=== PATIENT | female | born 1990 | race Caucasian/White ===

== ENCOUNTER 2016-08-17 07:26 | Emergency (ER) ==
[2016-08-17 07:29] VITALS: BP 128/85; TEMP 98.4; BMI 36.8
[2016-08-17 07:51] LABS: BASOPHILS % (AUTO) 0.3 % (0.0-3.0); EOSINOPHILS # (AUTO) 0.1 K/ul (0.0-0.7); EOSINOPHILS % (AUTO) 1.4 % (0.0-7.0); HEMOGLOBIN 14.8 g/dl (12.0-16.0); IMMATURE GRANULOCYTE % (AUTO) 0.3 % (0.0-5.0); LYMPHOCYTES # (AUTO) 2.2 K/uL (0.60-3.4); LYMPHOCYTES % (AUTO) 24.1 (10.0-50.0); MEAN CORPUSCULAR HEMOGLOBIN 28.1 pg (27.0-31.0); MEAN CORPUSCULAR HGB CONC 34.4 (31.8-35.4); MEAN CORPUSCULAR VOLUME 81.6 fl (81.0-99.0); MONOCYTES # (AUTO) 0.4 K/uL (0.4-2.0); MONOCYTES % (AUTO) 4.3 (0-10); NEUTROPHILS # (AUTO) 6.3 K/ul (2.0-6.9); NEUTROPHILS % (AUTO) 69.6; PLATELET COUNT 303 10^3/uL (140-440); RED BLOOD COUNT 5.27 10^6/ul (4.20-5.40)
[2016-08-17 08:13] LABS: SERUM PREGNANCY INTERNAL QC INTERNAL QC VALID
[2016-08-17 08:15] LABS: ALBUMIN 3.9 g/dL (3.4-5.0); ALBUMIN/GLOBULIN RATIO 1.22; ANION GAP 10.9; BILIRUBIN,TOTAL 0.5 mg/dL (0.00-1.20); BUN/CREATININE RATIO 17.1; CALCIUM 8.7 mg/dL (8.2-10.2); CREATININE 0.76 mg/dL (0.60-1.30); POTASSIUM 3.9 mmol/L (3.5-5.10); TOTAL PROTEIN 7.1 g/dL (6.4-8.2)
[2016-08-17 08:17] LABS: BILIRUBIN,URINE Negative (NEGATIVE); KETONES,URINE Negative (NEGATIVE); LEUKOCYTE ESTERASE ,URINE 1+ (NEGATIVE); NITRITE,URINE Negative (NEGATIVE); PH,URINE 5.5 (5-9); PROTEIN,URINE Negative (NEGATIVE); URINE, BLOOD Trace-intact (NEGATIVE)
--- NOTE | 2016-08-17 08:21 | ED.PDOC ---
General ED Provider: Dr. SAHIL AREVALO Chief Complaint: Nausea/Vomiting Stated Complaint: nausea , food smells bothers hers no period since jun Time Seen by Physician: 07:30 (no vaginal bleeding) Mode of Arrival: Walk-In Information Source: Patient Exam Limitations: No limitations Primary Care Provider: VANESA COLORADO Nursing and Triage Documentation Reviewed and Agree: Yes GI Complaint Exam - Vomiting/Diarrhea Complaint/Exam Onset/Duration: no vomiting Current Severity: None Aggravating: Reports: None Alleviating: Reports: None Associated Signs and Symptoms: Denies: Dizziness, Light-headedness, Melena, Hematemesis, Fever, Abdominal pain, Cramping Related History: Reports: Similar episode Use of Oral Contraceptives: No Use of Depoprovera: No Compliant With Contraceptive Use: No Non-GI Risk Factors: Reports: None Surgical Obstruction Risk Factors: Reports: None Related Surgical History: Reports: None Abdominal Findings: Present: None Differential Diagnoses: Review of Systems - Review Of Systems Constitutional: Reports: No symptoms Eyes: Reports: No symptoms Ears, Nose, Mouth, Throat: Reports: No symptoms Respiratory: Reports: No symptoms Cardiac: Reports: No symptoms GI: Reports: Nausea : Reports: No symptoms Musculoskeletal: Reports: No symptoms Skin: Reports: No symptoms Neurological: Reports: No symptoms Endocrine: Reports: No symptoms Hematologic/Lymphatic: Reports: No symptoms All Other Systems: Reviewed and Negative Past Medical History - Past Medical History Endocrine: Reports: None Cardiovascular: Reports: None Respiratory: Reports: None Hematological: Reports: None Gastrointestinal: Reports: None Genitourinary: Reports: None Neuro/Psych: Reports: None Musculoskeletal: Reports: None Cancer: Reports: None Last Menstrual Period: 06/25/16 - Surgical History General Surgical History: Reports: Cholecystectomy, Tonsillectomy, Other ( wisdom teeth ) - Family History Family History: Reports: Hypertension, Diabetes - Social History Smoking Status: Never smoker Hx Substance Use: No Alcohol Screening: Occasionally Physical Exam - Physical Exam Appearance: Well-appearing, No pain distress, Well-nourished Eyes: COURTNEY, EOMI, Conjunctiva clear ENT: Ears normal, Nose normal, Oropharynx normal Respiratory: Airway patent, Breath sounds clear, Breath sounds equal, Respirations nonlabored Cardiovascular: RRR, Pulses normal, No rub, No murmur GI/: Soft, Nontender, No masses, Bowel sounds normal, No Organomegaly Musculoskeletal: Normal strength, ROM intact, No edema, No calf tenderness Skin: Warm, Dry, Normal color Neurological: Sensation intact, Motor intact, Reflexes intact, Cranial nerves intact, Alert, Oriented Psychiatric: Affect appropriate, Mood appropriate Critical Care Note - Critical Care Note Total Time (mins): 0 Course - Course Hematology/Chemistry: 08/17/16 07:48 08/17/16 07:48 Orders, Labs, Meds: Lab Review 08/17/16 07:48 WBC 9.10 RBC 5.27 Hgb 14.8 Hct 43.0 MCV 81.6 MCH 28.1 MCHC 34.4 RDW Coeff of [place] 13.0 Plt Count 303 Immature Gran % (Auto) 0.3 Neut % (Auto) 69.6 Lymph % (Auto) 24.1 [place] % (Auto) 4.3 Eos % (Auto) 1.4 Baso % (Auto) 0.3 Immature Gran # (Auto) 0.0 Neut # 6.3 Lymph # 2.2 [place] # 0.4 Eos # 0.1 Baso # 0.0 Sodium 137 Potassium 3.9 Chloride 106 Carbon Dioxide 24 Anion Gap 10.9 BUN 13 Creatinine 0.76 Estimated GFR (MDRD) 93.00 BUN/Creatinine Ratio 17.10 Glucose 91 Calcium 8.7 Total Bilirubin 0.50 AST 15 ALT 18 Alkaline Phosphatase 87 Total Protein 7.1 Albumin 3.9 Globulin 3.2 Albumin/Globulin Ratio 1.22 Serum , Qual Negative Orders Category Date Time Status CBC W/ AUTO DIFF Stat LAB 08/17/16 07:39 Ordered COMPREHENSIVE METABOLIC PANEL Stat LAB 08/17/16 07:39 Ordered SERUM Stat LAB 08/17/16 Ordered URINALYSIS C & S IF INDICATED Stat LAB 08/17/16 07:39 Uncollected Vital Signs: Temp Pulse Resp BP Pulse Ox 08/17/16 07:27 98.4 F 96 H 16 128/85 97 Departure - Departure Time of Disposition: 08:21 Disposition: HOME SELF-CARE Discharge Problem: Nausea Instructions: Acute Nausea and Vomiting (ED) Condition: Good Pt referred to PMD for follow-up: No Additional Instructions: Please call your Family Physician as soon as possible to schedule a follow-up appointment. Allergies/Adverse Reactions: Allergies cefixime [From Suprax] Adverse Reaction (Verified 08/17/16 07:30) erythromycin ethylsuccinate [From Pediazole] Adverse Reaction (Verified 07:30) naproxen [From Naprosyn] Adverse Reaction (Verified 08/17/16 07:30) sulfisoxazole acetyl [From Pediazole] Adverse Reaction (Verified 08/17/16 07:30) tramadol Adverse Reaction (Verified 08/17/16 07:30) Home Medications: Ambulatory Orders 1 [No Reported Medications] 08/17/16 Disposition Discussed With: Patient
[2016-08-17 08:27] LABS: ADD URINE MICROSCOPIC YES
[2016-08-17 08:29] LABS: BACTERIA,URINE 1+ (NOT PRESENT)
== END 2016-08-17 09:29 | disposition home or self-care (01) ==
LOC: ED 07:26
DX: N39.0 Urinary tract infection, site not specified (principal)
CPT/HCPCS: 36415; 80053; 81001; 84703; 85025; 87086; 99283

== ENCOUNTER 2016-11-16 19:13 | Emergency (ER) ==
[2016-11-16 19:20] VITALS: BP 124/86; TEMP 98.4; BMI 38.1
--- NOTE | 2016-11-16 19:47 | ED.PDOC ---
General ED Provider: Dr. ZULLY PADILLA Chief Complaint: Abscess Stated Complaint: Has boils in private area, she is 16 weeks . Time Seen by Physician: 19:44 Mode of Arrival: Walk-In Information Source: Patient Primary Care Provider: VANESA [place]OR[place] Nursing and Triage Documentation Reviewed and Agree: Yes Skin Complaint Exam - Skin/Soft Tissue Complaint/Exam Symptoms Are: Still present Timing: Constant Initial Severity: Mild Current Severity: Mild Character: Reports: Redness, Swelling, Painful Aggravating: Reports: Touch Alleviating: Reports: None Associated Signs and Symptoms: Denies: Fever, Chills, Itching, Drainage, Bruising, Tenderness, Red streaks, Joint swelling Related History: Reports: Similar episode Skin Findings: Present: Erythema, Induration. Absent: Fluctuant mass Differential Diagnoses: Cellulitis, Infection Review of Systems - Review Of Systems Constitutional: Reports: No symptoms Eyes: Reports: No symptoms Ears, Nose, Mouth, Throat: Reports: No symptoms Respiratory: Reports: No symptoms Cardiac: Reports: No symptoms GI: Reports: No symptoms : Reports: No symptoms Musculoskeletal: Reports: No symptoms Skin: Reports: No symptoms Neurological: Reports: No symptoms Endocrine: Reports: No symptoms Hematologic/Lymphatic: Reports: No symptoms All Other Systems: Reviewed and Negative Past Medical History - Past Medical History Previously Healthy: Yes Endocrine: Reports: None Cardiovascular: Reports: None Respiratory: Reports: None Hematological: Reports: None Gastrointestinal: Reports: None Genitourinary: Reports: None Neuro/Psych: Reports: None Musculoskeletal: Reports: None Cancer: Reports: None Last Menstrual Period: - Surgical History General Surgical History: Reports: Cholecystectomy, Tonsillectomy, Other ( wisdom teeth ) - Family History Family History: Reports: Hypertension, Diabetes - Social History Smoking Status: Never smoker Hx Substance Use: No Alcohol Screening: Occasionally Physical Exam - Physical Exam Appearance: Well-appearing, No pain distress, Well-nourished Eyes: COURTNEY, EOMI, Conjunctiva clear ENT: Ears normal, Nose normal, Oropharynx normal Respiratory: Airway patent, Breath sounds clear, Breath sounds equal, Respirations nonlabored Cardiovascular: RRR, Pulses normal, No rub, No murmur GI/: Soft, Nontender, No masses, Bowel sounds normal, No Organomegaly Musculoskeletal: Normal strength, ROM intact, No edema, No calf tenderness Skin: Warm, Dry, Normal color Neurological: Sensation intact, Motor intact, Reflexes intact, Cranial nerves intact, Alert, Oriented Psychiatric: Affect appropriate, Mood appropriate Critical Care Note - Critical Care Note Total Time (mins): 0 Course - Course Vital Signs: Temp Pulse Resp BP Pulse Ox 11/16/16 19:14 98.4 F 106 H 16 124/86 97 Departure - Departure Time of Disposition: 19:51 Disposition: HOME SELF-CARE Discharge Problem: Abscess Instructions: Abscess (ED) Condition: Stable Pt referred to PMD for follow-up: Yes Additional Instructions: keep doing the hot pack keep f/u with Obgyn. take probiotics Prescriptions: Clindamycin HCl 300 mg PO TID #15 capsule Allergies/Adverse Reactions: Allergies cefixime [From Suprax] Adverse Reaction (Verified 11/16/16 19:21) erythromycin ethylsuccinate [From Pediazole] Adverse Reaction (Verified 19:21) naproxen [From Naprosyn] Adverse Reaction (Verified 11/16/16 19:21) sulfisoxazole acetyl [From Pediazole] Adverse Reaction (Verified 11/16/16 19:21) tramadol Adverse Reaction (Verified 11/16/16 19:21) Home Medications: Ambulatory Orders Clindamycin HCl 300 mg PO TID #15 capsule 11/16/16 Docusate Sodium [Colace] 100 mg PO DAILY 11/16/16 Pnv Cmb#21/Iron/Folic Acid [ Complete Caplet] 1 tab PO DAILY 11/16/16 Disposition Discussed With: Patient, Family
[2016-11-16] MEDS ORDERED: CLEOCIN PO STA (19:52)
== END 2016-11-16 20:14 | disposition home or self-care (01) ==
LOC: ED 19:13
DX: L02.91 Cutaneous abscess, unspecified (principal); Z33.1 Pregnant state, incidental
CPT/HCPCS: 99282

== ENCOUNTER 2017-11-01 22:09 | Emergency (ER) | payer OTHER ==
[2017-11-01 22:20] VITALS: BP 135/83; TEMP 98.6; BMI 40.5
--- NOTE | 2017-11-01 23:29 | ED.PDOC ---
General ED Provider: Dr. ROBB BANUELOS Chief Complaint: Fall Stated Complaint: Tripped over daughter, fell onto hardwood floor, landed on dresser drawer that was pulled out. Pain to lower back, hurts more with movement. Time Seen by Physician: 23:25 Mode of Arrival: Walk-In Information Source: Patient Nursing and Triage Documentation Reviewed and Agree: Yes Reviewed sepsis parameters & appropriate labs ordered?: No System Inflammatory Response Syndrome: Not Applicable Sepsis Protocol: For patient's 13 years and over: Temp is 96.8 and below OR 101 and greater Pulse >90 BPM Resp >20/minute Acutely Altered Mental Status Are patient's symptoms suggestive of a new infection, such as: -Pneumonia -Skin, Soft Tissue -Endocarditis -UTI -Bone, Joint Infection -Implantable Device -Acute Abdominal Infection -Wound Infection -Meningitis -Blood Stream Catheter Infection -Unknown Musculoskeletal Complaint Exam - Back Pain Complaint/Exam Mechanism of Injury: Reports: Trauma Onset/Duration: this evening Symptoms Are: Still present Timing: Constant Initial Severity: Severe Current Severity: Severe Location: Reports: Discrete (Mid lower back ) Character: Reports: Aching, Throbbing Aggravating: Reports: Movements, Lifting, Bending Alleviating: Reports: Rest Associated Signs and Symptoms: Denies: Swelling, Redness, Bruising, Fever, Weakness, Numbness, Tingling, Abdominal pain, Flank pain, Bladder incontinence, Bowel incontinence, Weight loss, Pain with weight bearing Focal Tenderness: No Paraspinal Muscle Tenderness: Yes Paraspinal Muscle Spasm: Yes Scoliosis: No Lordosis: No Kyphosis: No SLR Test: Right Negative, Left Negative Hip Motion Testing Pain: Right Negative, Left Negative Focal Weakness: Present: None Focal Sensory Loss: Present: None Gait: Present: Normal Back Picture: 1 - back pain Differential Diagnoses: Strain, Sprain Review of Systems - Review Of Systems Constitutional: Reports: No symptoms Musculoskeletal: Reports: Back pain Neurological: Reports: Anxiety All Other Systems: Reviewed and Negative Past Medical History - Past Medical History Previously Healthy: Yes Endocrine: Reports: None Cardiovascular: Reports: None Respiratory: Reports: None Hematological: Reports: None Gastrointestinal: Reports: None Genitourinary: Reports: None Neuro/Psych: Reports: None Musculoskeletal: Reports: None Cancer: Reports: None Last Menstrual Period: 1 week ago - Surgical History General Surgical History: Reports: Cholecystectomy, Tonsillectomy, Other ( wisdom teeth ) - Family History Family History: Reports: Hypertension, Diabetes - Social History Smoking Status: Never smoker Hx Substance Use: No Alcohol Screening: Occasionally - Immunizations Tetanus Shot up to Date: Yes Physical Exam - Physical Exam Appearance: Ill-appearing, Well-nourished Ill-appearing: Mild Pain Distress: Severe Neck: Supple Respiratory: Airway patent, Breath sounds clear, Breath sounds equal, Respirations nonlabored Cardiovascular: RRR, Pulses normal, No rub, No murmur Musculoskeletal: Limited ROM Skin: Warm, Dry Psychiatric: Anxious Critical Care Note - Critical Care Note Total Time (mins): 0 Course - Course Orders, Labs, Meds: Orders Category Date Time Status Ketorolac Tromethamine [Toradol] MEDS 11/01/17 23:31 Discontinued 60 mg .ROUTE .STK-MED ONE Ketorolac Tromethamine [Toradol] MEDS 11/01/17 23:29 Discontinued 60 mg IM ONCE STA Medications Discontinued Medications Generic Name Dose Route Start Last Admin Trade Name Freq PRN Reason Stop Dose Admin Ketorolac Tromethamine 60 mg 11/01/17 23:29 11/01/17 23:34 Toradol IM 11/01/17 23:30 Not Given ONCE STA Vital Signs: Temp Pulse Resp BP Pulse Ox 11/01/17 22:09 98.6 F 92 H 20 135/83 98 Departure - Departure Time of Disposition: 00:12 Disposition: HOME SELF-CARE Discharge Problem: Falls Lower back injury Qualifiers: Encounter type: initial encounter Qualified Code(s): S39.92XA - Unspecified injury of lower back, initial encounter Instructions: Low Back Strain (ED) Condition: Stable Pt referred to PMD for follow-up: Yes IPMP verified?: No Additional Instructions: Take medications as prescribed Follow up with PCP in 3 days Prescriptions: Hydrocodone/Acetaminophen [[place] 5-325 Tablet] 1 tab PO Q6HR PRN #7 tablet PRN Reason: PAIN Allergies/Adverse Reactions: Allergies cefixime [From Suprax] Adverse Reaction (Verified 11/16/16 19:21) erythromycin ethylsuccinate [From Pediazole] Adverse Reaction (Verified 19:21) naproxen [From Naprosyn] Adverse Reaction (Verified 11/16/16 19:21) sulfisoxazole acetyl [From Pediazole] Adverse Reaction (Verified 11/16/16 19:21) tramadol Adverse Reaction (Verified 11/16/16 19:21) Home Medications: Ambulatory Orders Docusate Sodium [Colace] 100 mg PO DAILY PRN 11/16/16 Alprazolam [Xanax] 0.5 mg PO BID PRN 11/01/17 Hydroxyzine Pamoate 25 mg PO DAILY 11/01/17 Norgestimate-Ethinyl Estradiol [Tri-Sprintec Tablet] 1 tab PO DAILY 11/01/17 Tizanidine HCl [Zanaflex] 4 mg PO TID PRN 11/01/17 Hydrocodone/Acetaminophen [[place] 5-325 Tablet] 1 tab PO Q6HR PRN #7 tablet 11/02 Disposition Discussed With: Patient
[2017-11-01] MEDS: TORADOL IM STA (23:34)
[2017-11-01] MEDS: TORADOL ONE (23:34)
== END 2017-11-02 00:24 | disposition home or self-care (01) ==
LOC: ED 22:09
DX: S39.92XA Unspecified injury of lower back, initial encounter (principal); M54.5 Low back pain; W03.XXXA Other fall on same level due to collision with another person, initial encounter
CPT/HCPCS: 96372; 99282

== ENCOUNTER 2017-12-04 12:34 | Observation (INO) ==
--- NOTE | 2017-12-04 13:19 | ED.PDOC ---
General ED Provider: Dr. ABHIJEET CHILDERS Chief Complaint: Chest Pain Stated Complaint: Chest pain Time Seen by Physician: 12:50 Mode of Arrival: Walk-In Information Source: Patient Exam Limitations: No limitations Primary Care Provider: YFN OLIVIA Nursing and Triage Documentation Reviewed and Agree: Yes Does patient meet sepsis criteria?: No System Inflammatory Response Syndrome: Not Applicable Sepsis Protocol: For patient's 13 years and over: Temp is 96.8 and below OR 101 and greater Pulse >90 BPM Resp >20/minute Acutely Altered Mental Status Are patient's symptoms suggestive of a new infection, such as: -Pneumonia -Skin, Soft Tissue -Endocarditis -UTI -Bone, Joint Infection -Implantable Device -Acute Abdominal Infection -Wound Infection -Meningitis -Blood Stream Catheter Infection -Unknown Cardiovascular Complaint Exam - Chest Pain Complaint/Exam Onset: Gradual (Pt woke up about 8 AM; chest pain noted then (did not wake her up) - has gotten worse during day) Associated Signs and Symptoms: Reports: Nausea. Denies: Vomiting (upset stomach feeling) Related History: Reports: Similar episode Related Surgical History: Reports: None History of Healthcare-Acquired Pneumonia: Reports: No AMI/ACS Risk Factors: Reports: None Prior Care for this Complaint: No JVD Present: No Diminshed Breath Sounds: No Reproducible Chest Wall Pain: No Review of Systems - Review Of Systems Constitutional: Reports: Malaise Ears, Nose, Mouth, Throat: Reports: No symptoms Respiratory: Reports: No symptoms Cardiac: Reports: Chest pain All Other Systems: Reviewed and Negative Past Medical History - Past Medical History Previously Healthy: Yes Endocrine: Reports: None Cardiovascular: Reports: None Respiratory: Reports: None Hematological: Reports: None Gastrointestinal: Reports: None Genitourinary: Reports: None Neuro/Psych: Reports: None Musculoskeletal: Reports: None Cancer: Reports: None Last Menstrual Period: 2 weeks ago - Surgical History General Surgical History: Reports: Cholecystectomy, Tonsillectomy, Other ( wisdom teeth ) - Family History Family History: Reports: Hypertension, Diabetes - Social History Smoking Status: Never smoker Hx Substance Use: No Alcohol Screening: None - Immunizations Tetanus Shot up to Date: Yes Physical Exam - Physical Exam Appearance: Well-appearing Pain Distress: Mild Eyes: COURTNEY, EOMI ENT: Ears normal, Nose normal, Oropharynx normal Neck: Supple Respiratory: Airway patent, Breath sounds clear, Breath sounds equal, Respirations nonlabored Cardiovascular: RRR, Pulses normal Musculoskeletal: Normal strength, ROM intact Skin: Warm, Dry, Normal color Neurological: Alert, Oriented, Unresponsive, Abnormal reflexes Psychiatric: Affect appropriate, Mood appropriate Interpretation - Radiology Interpretation Radiology Interpretation By: Radiologist Radiology Results: Negative Exam Interpreted: CXR Radiology Interpretation By: Radiologist Radiology Results: Negative Exam Interpreted: CT Scan (PE protocol) - EKG Interpretation Time of EKG #1: 12:56 Rate: Tachy (101 BMP) Rhythm: Sinus Ectopy: None Cascade: NL ST Segment: Normal Interpretation: No acute changes Critical Care Note - Critical Care Note Total Time (mins): 40 Comments: W/U for ACS and PE; review labs and radiology findings. Discussed with Hospitalist - admitted for CP, possible ACS Course - Course Hematology/Chemistry: 12/04/17 13:20 12/04/17 13:20 Orders, Labs, Meds: Lab Review 12/04/17 12/04/17 12/04/17 13:20 13:20 13:20 WBC 7.55 RBC 4.95 Hgb 13.7 Hct 39.5 MCV 79.8 L MCH 27.7 MCHC 34.7 RDW Coeff of [place] 13.5 Plt Count 318 Immature Gran % (Auto) 0.3 Neut % (Auto) 63.9 Lymph % (Auto) 26.9 [place] % (Auto) 6.6 Eos % (Auto) 1.9 Baso % (Auto) 0.4 Immature Gran # (Auto) 0.0 Neut # (Auto) 4.8 Lymph # (Auto) 2.0 [place] # (Auto) 0.5 Eos # (Auto) 0.1 Baso # (Auto) 0.0 D-Dimer (Manual) 797.38 Sodium 133 L Potassium 3.7 Chloride 106 Carbon Dioxide 19 L Anion Gap 11.7 BUN 12 Creatinine 0.70 Estimated GFR (MDRD) 102.00 BUN/Creatinine Ratio 17.14 Glucose 97 Calcium 8.4 Total Bilirubin 0.5 AST 12 L ALT 14 Alkaline Phosphatase 80 Troponin I < 0.0100 Total Protein 6.7 Albumin 3.3 L Globulin 3.4 Albumin/Globulin Ratio 0.97 Urine Test Urine Opiates Screen Ur Oxycodone Screen Urine Methadone Screen Ur Propoxyphene Screen Ur Barbiturates Screen U Tricyclic Antidepress Ur Phencyclidine Scrn Ur Amphetamine Screen U Methamphetamines Scrn U Benzodiazepines Scrn Urine Cocaine Screen U Cannabinoids Screen 12/04/17 12/04/17 13:20 13:20 WBC RBC Hgb Hct MCV MCH MCHC RDW Coeff of [place] Plt Count Immature Gran % (Auto) Neut % (Auto) Lymph % (Auto) [place] % (Auto) Eos % (Auto) Baso % (Auto) Immature Gran # (Auto) Neut # (Auto) Lymph # (Auto) [place] # (Auto) Eos # (Auto) Baso # (Auto) D-Dimer (Manual) Sodium Potassium Chloride Carbon Dioxide Anion Gap BUN Creatinine Estimated GFR (MDRD) BUN/Creatinine Ratio Glucose Calcium Total Bilirubin AST ALT Alkaline Phosphatase Troponin I Total Protein Albumin Globulin Albumin/Globulin Ratio Urine Test Negative Urine Opiates Screen Negative Ur Oxycodone Screen Negative Urine Methadone Screen Negative Ur Propoxyphene Screen Negative Ur Barbiturates Screen Negative U Tricyclic Antidepress Negative Ur Phencyclidine Scrn Negative Ur Amphetamine Screen Negative U Methamphetamines Scrn Negative U Benzodiazepines Scrn Negative Urine Cocaine Screen Negative U Cannabinoids Screen Negative Orders Category Date Time Status PLACE PATIENT OBSERVATION .TO MEDSURG (MONITORED BED ADMISSION 12/04/17 16: 27 Active ) EKG-(ED ONLY) Stat CARDIO 12/04/17 13:16 Completed NPO REMINDER: IMAGING ONCE CARE 12/04/17 14:41 Completed TELEMETRY MONITORING TELE CARE 12/04/17 16:28 Active CBC W/ AUTO DIFF Stat LAB 12/04/17 13:20 Completed COMPREHENSIVE METABOLIC PANEL Stat LAB 12/04/17 13:20 Completed D-DIMER Stat LAB 12/04/17 13:20 Completed TROPONIN I Stat LAB 12/04/17 13:20 Completed URINE DRUG SCREEN (RAPID FOR ED) [DRUG SCREEN, URINE, LAB 12/04/17 13:20 Completed RAPID] Stat URINE Stat LAB 12/04/17 13:20 Completed Ondansetron [Zofran Odt] MEDS 12/04/17 15:11 Discontinued 4 mg PO ONCE STA CHEST, 2 VIEWS PA & LAT Stat RADS 12/04/17 13:[address] CHEST PE PROTOCOL Stat RADS 12/04/17 14:39 Completed Medications Generic Name Dose Route Start Last Admin Trade Name Freq PRN Reason Stop Dose Admin Fluoxetine HCl 20 mg 12/05/17 09:00 Prozac PO DAILY [place] Hydroxyzine Pamoate 25 mg 12/05/17 09:00 Vistaril PO DAILY [facility] Sodium Chloride 1,000 mls @ 75 mls/hr 12/04/17 17:30 Sodium Chloride IV .[id number] [facility] Metformin HCl 500 mg 12/04/17 21:00 Glucophage PO BID [facility] Non-Formulary Medication 4 mg 12/05/17 09:00 Montelukast Sodium [Singulair] PO DAILY [facility] Non-Formulary Medication 1 tab 12/05/17 09:00 Norgestimate-Ethinyl Estradiol [Tri-Sprintec Tablet] PO DAILY [facility] Non-Formulary Medication 6 mg 12/04/17 21:00 Paliperidone [Invega] PO BID [facility] Non-Formulary Medication 25 mg 12/04/17 21:00 Topiramate [Topamax] PO BID [facility] Prazosin HCl 1 mg 12/04/17 21:00 Minipress PO BEDTIME [facility] Discontinued Medications Generic Name Dose Route Start Last Admin Trade Name Freq PRN Reason Stop Dose Admin Ondansetron HCl 4 mg 12/04/17 15:11 12/04/17 15:29 Zofran Odt PO 12/04/17 15:12 4 mg ONCE STA Administration Vital Signs: Temp Pulse Resp BP Pulse Ox 12/04/17 12:34 98 F 120 H 16 123/88 98 LUIS Risk Score LUIS Risk Score: Risk Score Odds of by 30D 0 0.1 (0.1-0.2) 1 0.3 (0.2-0.3) 2 0.4 (0.3-0.5) 3 0.7 (0.6-0.9) 4 1.2 (1.0-1.5) 5 2.2 (1.9-2.6) 6 3.0 (2.5-3.6) 7 4.8 (3.8-6.1) Departure - Departure Time of Disposition: 17:17 Disposition: PLACED OBSERVATION Discharge Problem: Chest pain Condition: Fair Pt referred to PMD for follow-up: Yes (Call for followup after discharge from ER ) IPMP verified?: No (No narcotics prescribed) Allergies/Adverse Reactions: Allergies cefixime [From Suprax] Adverse Reaction (Verified 12/04/17 12:46) erythromycin ethylsuccinate [From Pediazole] Adverse Reaction (Verified 12:46) naproxen [From Naprosyn] Adverse Reaction (Verified 12/04/17 12:46) sulfisoxazole acetyl [From Pediazole] Adverse Reaction (Verified 12/04/17 12:46) tramadol Adverse Reaction (Verified 12/04/17 12:46) Home Medications: Ambulatory Orders Hydroxyzine Pamoate 25 mg PO DAILY 11/01/17 Norgestimate-Ethinyl Estradiol [Tri-Sprintec Tablet] 1 tab PO DAILY 11/01/17 Fluoxetine HCl [Prozac] 20 mg PO DAILY 12/04/17 Metformin HCl 500 mg PO BID 12/04/17 Montelukast Sodium [Singulair] 4 mg PO DAILY 12/04/17 Paliperidone [Invega] 6 mg PO BID 12/04/17 Prazosin HCl 1 mg PO BEDTIME 12/04/17 Topiramate [Topamax] 25 mg PO QID 12/04/17
--- NOTE | 2017-12-04 14:12 | DI ---
EXAM: CHEST FRONTAL AND LATERAL VIEWS HISTORY: Chest pain. COMPARISON: 10/08/2015 FINDINGS: Heart size and mediastinal contour remain within normal limits. No acute infiltrates. Normal vascularity with no pleural fluid or pneumothorax. The bony thorax has no acute finding. IMPRESSION: No acute process.
[2017-12-04] MEDS ORDERED: ZOFRAN ODT PO STA (15:11)
--- NOTE | 2017-12-04 16:05 | CT ---
EXAM: CTA of the chest. History: Chest pain, elevated D-dimer. Comparison: Chest radiograph 12/04/2017 Technique: Multiplanar CT images through the thorax were obtained following administration of IV con trast. MIP images and 3-D reconstructions were also provided. Findings: Heart size is normal. No pericardial effusion. Great vessels are unremarkable. No patho logically enlarged thoracic lymph nodes. No pulmonary arterial filling defects. No consolidation. No pleural fluid and no pneumothorax. No lung masses or lung nodules. Within the visualized upper abdomen, no acute findings. No acute osseous abnormalities. Impression: Unremarkable exam.
[2017-12-04 17:26] VITALS: BMI 41.5
[2017-12-04] MEDS: SODIUM CHLORIDE 1,000 ML IV SCH (18:04)
[2017-12-04] MEDS ORDERED: TORADOL IVP PRN (18:40)
[2017-12-04] MEDS ORDERED: DECADRON 4 MG/ML SDV IVP STA (18:41)
[2017-12-04] MEDS ORDERED: TORADOL ONE (19:05)
[2017-12-04] MEDS ORDERED: TOPAMAX ONE (19:38)
[2017-12-04] MEDS ORDERED: NORGESTIMATE ETHINYL ESTRADIOL PO SCH (21:00)
[2017-12-04] MEDS ORDERED: VISTARIL PO SCH (21:00)
[2017-12-04] MEDS ORDERED: PALIPERIDONE 6 MG PO SCH (21:00)
[2017-12-04] MEDS ORDERED: NON-FORMULARY MEDICATION (Topiramate [Topamax] 25 MG) PO SCH (21:00)
[2017-12-04] MEDS ORDERED: MINIPRESS PO SCH (21:00)
[2017-12-05] MEDS: SODIUM CHLORIDE 1,000 ML IV SCH (06:32)
[2017-12-05] MEDS ORDERED: GLUCOPHAGE PO SCH (08:00)
[2017-12-05] MEDS ORDERED: NORGESTIMATE ETHINYL ESTRADIOL PO SCH ×2 (09:00→21:00)
[2017-12-05] MEDS ORDERED: VISTARIL PO SCH (09:00)
[2017-12-05] MEDS ORDERED: MONTELUKAST SODIUM 4 MG PO SCH (09:00)
[2017-12-05] MEDS ORDERED: PROZAC PO SCH (09:00)
[2017-12-05] MEDS ORDERED: TOPAMAX PO SCH (09:00)
[2017-12-05] MEDS ORDERED: PALIPERIDONE 6 MG PO SCH (09:00)
[2017-12-05 09:37] VITALS: BP 122/73; TEMP 98
--- NOTE | 2017-12-05 10:44 | PCM.PROG ---
Attending Provider: ATTENDING PROVIDER: [facility] This patient is seen with Tiara Suh, Nurse Practitioner. DATE OF SERVICE: 12/05/17 SUBJECTIVE: This 27 year old WHITE/ F was hospitalized 12/04/17. The patient is sitting up in bed, alert. She states she started with atypical type chest pain yesterday, described as sharp and stabbing and she felt shaky. No history of CAD. The patient does have a history of anxiety and panic attacks. REVIEW OF SYSTEMS: CONSTITUTIONAL: No night sweats. No fatigue, malaise, lethargy. No fever or chills. HEENT: Eyes: No visual changes. No eye pain. No eye discharge. ENT: No runny nose. No epistaxis. No sinus pain. No odynophagia. No congestion. RESPIRATORY: No cough, no congestion. No hemoptysis. No shortness of breath. CARDIOVASCULAR: No angina symptoms. No CHF symptoms. Atypical chest pain for CAD. No palpitations. No orthopnea.. GASTROINTESTINAL: No abdominal pain. No nausea or vomiting. No diarrhea or constipation. No hematemesis. No hematochezia. GENITOURINARY: No urgency. No frequency. No dysuria. No hematuria. No obstructive symptoms. No discharge. No pain. No significant abnormal bleeding. MUSCULOSKELETAL: No musculoskeletal pain; no joint swelling. NEUROLOGICAL: Awake, alert, oriented to time, place and person. No headache. No neck pain. No syncope. No seizures. No dizziness. PSYCHIATRIC: Anxiety. No depression. No suicidal thoughts. No homicidal thoughts. SKIN: No rash. No lesions. No wounds. ENDOCRINE: No unexplained weight loss. No weight gain. HEMATOLOGIC/LYMPHATIC: No anemia. No purpura. No petechiae. No prolonged or excessive bleeding. No palpable lymph nodes. PHYSICAL EXAMINATION: GENERAL: The patient is awake, alert and oriented, sitting in bed in no distress. VITAL SIGNS: Temperature 97.6 F, Pulse 84, Respiratory Rate 19, BP 117/71, Pulse Ox 98% HEENT: Head normocephalic, atraumatic. Eyes: Extraocular muscles are intact. Pupils are equal, round and reactive to light and accommodation. Ears: No lesions. Nose appeared normal. Throat: No exudate or erythema. NECK: Supple. No JVD, no carotid bruit. No lymphadenopathy or thyromegaly. LUNGS: Clear to auscultation. Percussion note normal. Chest symmetrical. HEART: S1, S2, no S3. No murmurs. No cyanosis or clubbing. No ascites. Pulses: Dorsalis pedis and posterior tibial pulses +1 to +2 both sides. ABDOMEN: Soft. Non-tender. Bowel sounds active. No CVA tenderness. No mass felt. EXTREMITIES: No edema. Full range of motion of all extremities, equal. NEUROLOGIC: No focal deficit. Cranial nerves II through XII are grossly intact. No headache, no double vision or headache. SKIN: Not dry. Intact. Turgor-normal. LYMPHATIC: No palpable lymph nodes/no lymphedema. MUSCULOSKELETAL: Normal joints with no swelling. Muscle tone is normal. LAB REVIEW: 12/05/17 04:45 12/05/17 04:45 12/05/17 04:45: Sodium 136, Potassium 4.4, Chloride 110 H, Carbon Dioxide 19 L, Anion Gap 11.4, BUN 12, Creatinine 0.70, Estimated GFR (MDRD) 102.00, BUN/ Creatinine Ratio 17.14, Glucose 110, Calcium 8.2, Total Bilirubin 0.5, AST 13 L , ALT 14, Alkaline Phosphatase 77, Total Protein 6.6, Albumin 3.2 L, Globulin 3.4, Albumin/Globulin Ratio 0.94 12/05/17 04:45: WBC 8.81, RBC 4.88, Hgb 13.6, Hct 39.1, MCV 80.1 L, MCH 27.9, MCHC 34.8, RDW Coeff of Puma 13.3, Plt Count 332, Immature Gran % (Auto) 0.3, Neut % (Auto) 79.7, Lymph % (Auto) 17.1, Carter % (Auto) 2.7, Eos % (Auto) 0.0, Baso % (Auto) 0.2, Immature Gran # (Auto) 0.0, Neut # (Auto) 7.0 H, Lymph # ( Auto) 1.5, Carter # (Auto) 0.2 L, Eos # (Auto) 0.0, Baso # (Auto) 0.0 12/04/17 23:10: Troponin I < 0.0100 12/04/17 13:20: Urine Test Negative 12/04/17 13:20: Urine Opiates Screen Negative, Ur Oxycodone Screen Negative, Urine Methadone Screen Negative, Ur Propoxyphene Screen Negative, Ur Barbiturates Screen Negative, U Tricyclic Antidepress Negative, Ur Phencyclidine Scrn Negative, Ur Amphetamine Screen Negative, U Methamphetamines Scrn Negative, U Benzodiazepines Scrn Negative, Urine Cocaine Screen Negative, U Cannabinoids Screen Negative 12/04/17 13:20: D-Dimer (Manual) 797.38 12/04/17 13:20: Sodium 133 L, Potassium 3.7, Chloride 106, Carbon Dioxide 19 L, Anion Gap 11.7, BUN 12, Creatinine 0.70, Estimated GFR (MDRD) 102.00, BUN/ Creatinine Ratio 17.14, Glucose 97, Calcium 8.4, Total Bilirubin 0.5, AST 12 L, ALT 14, Alkaline Phosphatase 80, Troponin I < 0.0100, Total Protein 6.7, Albumin 3.3 L, Globulin 3.4, Albumin/Globulin Ratio 0.97 12/04/17 13:20: WBC 7.55, RBC 4.95, Hgb 13.7, Hct 39.5, MCV 79.8 L, MCH 27.7, MCHC 34.7, RDW Coeff of Puma 13.5, Plt Count 318, Immature Gran % (Auto) 0.3, Neut % (Auto) 63.9, Lymph % (Auto) 26.9, Carter % (Auto) 6.6, Eos % (Auto) 1.9, Baso % (Auto) 0.4, Immature Gran # (Auto) 0.0, Neut # (Auto) 4.8, Lymph # (Auto ) 2.0, Carter # (Auto) 0.5, Eos # (Auto) 0.1, Baso # (Auto) 0.0 ASSESSMENT: 1. ATYPICAL CHEST PAIN. 2. ANXIETY WITH HISTORY OF PANIC ATTACKS 3. SCHIZOPHRENIA 4. OBESITY PLAN: 1. T4, TSH 2. Lipids 3. A1C 4. Echo and stress echo Plan and coordination of the patient's care discussed in the presence of Modeling Analyst and nurse. CONDITION: Stable SCRIBED BY: MO SYED Programmer Analyst scribed while in presence of service performed by Dr. Fuller/Tiara Suh APRN on 12/05/17 ([id number])
--- NOTE | 2017-12-05 13:04 | STRESSECHO ---
Date of Test: 12/05/17 Ordering Physician: HOSPITALIST--NIKUNJ FULLER Occupation:HOUSE Reason for Exam: CHEST PAIN Smoking History: NO Height: 62" Weight: 227 LBS Current Medications: PRAZOSIN, METFORMIN, PROZAC, SINGULAIR, TOPAMAX, INVEGA, CONTROL Resting EKG: SINUS RHYTHM/ NO ACUTE CHANGES Target Heart Rate: 165/195 max S-T SEGMENT STAGE MPH/GRADE HEART RATE BPM BLOOD PRESSURE MMHG RHYTHM +/- ELEVATION DEPRESSION SYMPTOMS,COMMENTS AT REST 90 134/68 SR X NONE 1 1.7/10% 150 162/70 SR X NONE 2 2.5/12% 3 3.4/14% 4 4.2/16% 5 5.0/18% Immediately After 164 SR X FATIGUE Minutes Post Exercise 4:00 92 SR X FATIGUE Minutes Post Exercise DURATION OF EXERCISE: 4:03 MAXIMUM HEART RATE REACHED: 164 BPM REASON FOR TERMINATION: FATIGUE 99% OXYGEN SATURATION ON ROOM AIR WITH EXERCISE INTERPRETATION: 1. NO EVIDENCE OF ISCHEMIA BY ST-T WAVE 2. NO CHEST PAIN OR CHEST DISCOMFORT 3. BLOOD PRESSURE RESPONSE NORMAL AT REST AND EXERCISE 4. NO ARRHYTHMIAS NORMAL LEFT VENTRICULAR CONTRACTILITY--RESTING AND POST EXERCISE MTDD
--- NOTE | 2017-12-05 13:12 | HP ---
DATE OF SERVICE: 12/04/17 REASON FOR HOSPITALIZATION: Chest pain. HISTORY OF PRESENT ILLNESS: 27-year-old white female hospitalized through the emergency room with chest pain. The patient's chest pain started in the morning when she was not doing anything; she was at home. The patient's pain was steady, center of the chest not going to any other part of the body. At times, it goes to the left shoulder. No shortness of breath with it. Chest pain persisted so the patient decided to come to the emergency room around 1 p.m. The patient was seen and examined with the ER attending. EKG showed sinus rhythm. No acute changes. PAST MEDICAL HISTORY: History of depression Migraine headaches Metabolic syndrome Morbid obesity with BMI more than 41 PAST SURGICAL HISTORY: Cholecystectomy Tonsillectomy Dubois teeth extracted times four REVIEW OF SYSTEMS: CONSTITUTIONAL: Fatigue and weakness. No sweating. No night sweats. No malaise , lethargy. No fever or chills. HEENT: Eyes: No visual changes. No eye pain. No eye discharge. ENT: No runny nose. No epistaxis. No sinus pain. No sore throat. No odynophagia. No ear pain. No congestion. RESPIRATORY: No cough, no congestion. No hemoptysis. No shortness of breath. CARDIOVASCULAR: Chest pain is in the center of the chest probably going to the left shoulder but otherwise no radiation to any other part of the body. Chest pain feels sharp, started at 8 a.m. During the day it got worse. No angina symptoms. No CHF symptoms. No palpitations. No PND. No orthopnea. GASTROINTESTINAL: The patient reported mild nausea but no vomiting. She had some belching. No abdominal pain. No diarrhea or constipation. No hematemesis. No hematochezia. GENITOURINARY: No urgency. No frequency. No dysuria. No hematuria. No obstructive symptoms. No discharge. No pain. No significant abnormal bleeding. MUSCULOSKELETAL: No musculoskeletal pain. No joint swelling. No arthritis. NEUROLOGICAL: No headache. No neck pain. No syncope. No seizures. No dizziness. PSYCHIATRIC: Not anxious. No depression. No suicidal thoughts. No homicidal thoughts. SKIN: No rash. No lesions. No wounds. ENDOCRINE: No unexplained weight loss. No weight gain. HEMATOLOGIC/LYMPHATIC: No anemia. No purpura. No petechiae. No prolonged or excessive bleeding. No palpable lymph nodes. PERSONAL/FAMILY/SOCIAL HISTORY: The patient is , lives with , two kids. Nonsmoker. No alcohol abuse. No history of drug abuse. MEDICATIONS: Hydroxyzine 25 mg p.o. daily control pills one a day Prozac 20 mg p.o. daily Metformin 500 mg twice a day Singulair 4 mg p.o. daily Invega 6 mg twice a day Prazosin 1 mg at bedtime Topamax 25 mg q.i.d. ALLERGIES: CEFIXIME, ERYTHROMYCIN, NAPROXEN, TRAMADOL, SULFISOXAZOLE PHYSICAL EXAMINATION: GENERAL: The patient is oriented to time, place and person. VITAL SIGNS: Temperature 97.7, pulse 100/min, respiratory rate 18, BP 123/88, pulse ox 99%. HEENT: Head normocephalic, atraumatic. Eyes: Extraocular muscles are intact. Pupils are equal, round and reactive to light and accommodation. Ears: No lesions. Nose appeared normal. Throat: No exudate or erythema. NECK: Supple. No JVD, no carotid bruit. No lymphadenopathy or thyromegaly. LUNGS: Clear to auscultation. Percussion note normal. Chest symmetrical. HEART: S1, S2, no S3. No murmurs. No cyanosis or clubbing. No ascites. Pulses: Dorsalis pedis and posterior tibial pulses +1 to +2 bilaterally. ABDOMEN: Soft. Nontender. Bowel sounds active. No CVA tenderness. No mass felt. EXTREMITIES: No edema. Full range of motion of all extremities, equal. NEUROLOGIC: No focal deficit. Cranial nerves II through XII are grossly intact. No headache, no double vision or headache. SKIN: Not dry. Intact. Turgor - normal. LYMPHATIC: No palpable lymph nodes/no lymphedema. MUSCULOSKELETAL: Normal joints with no swelling. Muscle tone is normal. LABS: Hemoglobin 13, hematocrit 39, WBC 7,500, normal differential. Creatinine 0.7, BUN 12, potassium 3.7. EKG sinus rhythm. No acute changes. Cardiac markers negative. Drug screen entirely negative. Urine and serum troponin negative. ASSESSMENT: 1. CHEST PAIN SEEMS TO BE NONCARDIAC. RISK FACTORS KNOWN, BMI MORE THAN 40. FAMILY HISTORY OF HEART DISEASE. SEDENTARY LIFESTYLE. THE PATIENT IS 27-YEARS- OLD. PLAN: 1. Admit with telemetry 2. Cardiac markers 3. Echocardiogram 4. Stress echo 5. Lipid profile 6. T4, TSH 7. Counseling for weight loss done CONDITION: Stable TIME SPENT: More than 70 minutes. MTDD
[2017-12-05] MEDS ORDERED: MINIPRESS PO SCH (21:00)
--- NOTE | 2017-12-06 10:49 | ECHO2D ---
Date of Exam: 12/05/17 Ordering Physician: HOSPITALIST--DR. HUMBERTO [facility]ULLER[facility] #: 120 Reason for Echo: CHEST PAIN M-Mode Normal Adult Results LV Dimensions Normal Adult Results AoV Opening excursions >1.6 >1.6 LVEDD-base- 3.5-5.8 4.2 Ao root dimensions 2.0-3.7 2.9 LVESD-base- 3.1-4.6 L. Atrium dimensions 1.9-3.8 3.4 Post. Wall thickness 0.8-1.1 1.2 IV septum (thickness) 0.7-1.2 1.1 Post. Wall excursion 0.72-1.3 NORMAL Septal motion NORMAL Systolic motion R. Ventricular cavity 1.5-2.0 NORMAL LVEF 60% 65% Paradoxical septal wall motion NORMAL 2-D : 2-D M Mode Echocardiogram was performed using apical four chamber and left parasternal long and short axis views. Mitral, tricuspid and aortic valves appear to be normal. Contractility of the left ventricle seems to be normal, so is the cavity size. Left atrial cavity size and aortic root appear to be normal. There is no pericardial effusion. There is no thrombus noted in the left ventricular or left aortic cavity. No mitral valve prolapse noted. M-MODE: MV: NORMAL AV: NORMAL TV: NORMAL PV: CHAMBER SIZE: NORMAL WALL MOTION: NORMAL PERICARDIUM: NORMAL INTERPRETATION: 1. NORMAL 2 "D" "M" MODE ECHO [facility]
--- NOTE | 2017-12-06 14:40 | PN ---
DATE OF SERVICE: 12/05/17 SUBJECTIVE: 27-year-old white female hospitalized with chest pain. REVIEW OF SYSTEMS: CONSTITUTIONAL: No night sweats. No fatigue, malaise, lethargy. No fever or chills. HEENT: Eyes: No visual changes. No eye pain. No eye discharge. ENT: No runny nose. No epistaxis. No sinus pain. No sore throat. No odynophagia. No congestion. RESPIRATORY: No cough, no congestion. No hemoptysis. No shortness of breath. CARDIOVASCULAR: No angina symptoms. No CHF symptoms. No atypical chest pain for CAD. No palpitations. No orthopnea. GASTROINTESTINAL: No abdominal pain. No nausea or vomiting. No diarrhea or constipation. No hematemesis. No hematochezia. GENITOURINARY: No urgency. No frequency. No dysuria. No hematuria. No obstructive symptoms. No discharge. No pain. No significant abnormal bleeding. MUSCULOSKELETAL: No musculoskeletal pain; no joint swelling. NEUROLOGICAL: No headache. No neck pain. No syncope. No seizures. No dizziness. PSYCHIATRIC: Not anxious. No depression. No suicidal thoughts. No homicidal thoughts. SKIN: No rash. No lesions. No wounds. ENDOCRINE: No unexplained weight loss. No weight gain. HEMATOLOGIC/LYMPHATIC: No anemia. No purpura. No petechiae. No prolonged or excessive bleeding. No palpable lymph nodes. PHYSICAL EXAMINATION: GENERAL: The patient is oriented to time, place and person. HEENT: Head normocephalic, atraumatic. Eyes: Extraocular muscles are intact. Pupils are equal, round and reactive to light and accommodation. Ears: No lesions. Nose appeared normal. Throat: No exudate or erythema. NECK: Supple. No JVD, no carotid bruit. No lymphadenopathy or thyromegaly. LUNGS: Clear to auscultation. Percussion note normal. Chest symmetrical. HEART: S1, S2, no S3. No murmurs. No cyanosis or clubbing. No ascites. Pulses: Dorsalis pedis and posterior tibial pulses +1 to +2 both sides. ABDOMEN: Soft. Nontender. Bowel sounds active. No CVA tenderness. No mass felt. EXTREMITIES: No edema. Full range of motion of all extremities, equal. NEUROLOGIC: No focal deficit. Cranial nerves II through XII are grossly intact. No headache, no double vision or headache. SKIN: Not dry. Intact. Turgor - normal. LYMPHATIC: No palpable lymph nodes/no lymphedema. MUSCULOSKELETAL: Normal joints with no swelling. Muscle tone is normal. ASSESSMENT: CHEST PAIN SEEMS TO BE NONCARDIAC, ATYPICAL, SHARP. ALL THE CARDIAC MARKERS ARE NEGATIVE. EKG - SINUS RHYTHM. TELEMETRY - SINUS TACHYCARDIA AT TIMES BUT NORMAL OTHERWISE. NO ST-T WAVE CHANGE. ECHO SHOWED NORMAL LV CONTRACTILITY, NORMAL VALVES. STRESS ECHO - THE PATIENT HAD METS OF [address] OF [address]-T WAVE CHANGE WITH EXERCISE. BLOOD PRESSURE RESPONSE WAS NORMAL. NO ARRHYTHMIAS. LV CONTRACTILITY NORMAL, RESTING AND POST EXERCISE. THE PATIENT'S LIPID PROFILE IS NORMAL. A1C IS 5.1. 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 PLAN: 1. THE PATIENT IS STABLE ENOUGH TO BE DISCHARGED. 2. COUNSELING FOR WEIGHT LOSS DIET DONE. TIME SPENT: More than 30 minutes. Plan and coordination of the patient's care discussed in the presence of nurse. HARINI
--- NOTE | 2017-12-06 14:49 | DS ---
DATE OF SERVICE: 12/05/17 FINAL DIAGNOSIS: 1. CHEST PAIN DISCHARGE INSTRUCTIONS: Followup appointment with your primary caregiver, Dr. Jean-Pierre APRN as soon as possible. MEDICATIONS AT DISCHARGE: Hydroxyzine 25 mg p.o. daily Norgestimate-Ethinyl Estradiol one tab p.o. daily Metformin 500 mg p.o. b.i.d. Fluoxetine (Prozac) 20 mg p.o. daily Singulair 4 mg p.o. daily Topamax 25 mg p.o. q.i.d. Invega 6 mg p.o. b.i.d. Prazosin 1 mg p.o. bedtime NEW PRESCRIPTIONS: None DIET INSTRUCTIONS: Heart Healthy ACTIVITY: Get plenty of exercise at home. Gradually increase your activity according to your toleration. SMOKING: Never a smoker DISEASE SPECIFIC EDUCATION: Followup Lifestyle modifications discussed to include diet and weight loss. HOSPITAL COURSE: The patient was hospitalized with chest pain which was fairly atypical. The patient's telemetry, cardiac markers and EKGs were all practically unremarkable. There was no evidence of acute myocardial event. She underwent echo and stress echo, which were negative for any ischemia. The patient was discharged in stable condition to be followed by Dr. Morejon this coming Saturday. The rest of the neurological, psychiatric, GI status all normal. ADDENDUM: The patient has a good family live, two kids. She is a housewife. No suicidal or homicidal ideations. CONDITION: STABLE. TIME SPENT: More than 60 minutes. MTDD
--- NOTE | 2017-12-08 09:29 | ECHOSTRESS ---
Date of Exam: 12/05/17 Ordering Physician: HOSPITALIST--DR. HUMBERTO FULLER Reason for Echo: CHEST PAIN, STRESS TEST --NO ISCHEMIA M-Mode Normal Adult Results LV Dimensions Normal Adult Results AoV Opening excursions >1.6 LVEDD-base- 3.5-5.8 Ao root dimensions 2.0-3.7 LVESD-base- 3.1-4.6 L. Atrium dimensions 1.9-3.8 Post. Wall thickness 0.8-1.1 IV septum (thickness) 0.7-1.2 Post. Wall excursion 0.72-1.3 Septal motion Systolic motion R. Ventricular cavity 1.5-2.0 LVEF 60% Paradoxical septal wall motion 2-D: NORMAL LEFT VENTRICULAR CONTRACTILITY--RESTING AND POST EXERCISE M-MODE: MV: AV: TV: PV: CHAMBER SIZE: WALL MOTION: NORMAL LEFT VENTRICULAR CONTRACTILITY--RESTING AND POST EXERCISE PERICARDIUM: INTERPRETATION: 1. NORMAL LEFT VENTRICULAR CONTRACTILITY--RESTING AND POST EXERCISE MTDD
--- NOTE | 2017-12-09 09:16 | PN ---
CODING FOR BILLING 12/04/17 LEVEL 5 - OBSERVATION 12/05/17 DISCHARGE - OBSERVATION MTDD
== END 2017-12-05 13:50 | disposition home or self-care (01) ==
LOC: ED 12:34 → MEDSURG B 16:37
PROVIDERS: ADMIT Internal Medicine; ATTEND Internal Medicine
DX: R11.0 Nausea (principal); Z68.41 Body mass index [BMI] 40.0-44.9, adult; R53.81 Other malaise; F41.9 Anxiety disorder, unspecified; F20.9 Schizophrenia, unspecified; E66.9 Obesity, unspecified
CPT/HCPCS: 36415; 80053; 80061; 80306; 81025; 83036; 84439; 84443; 84484; 85025; 85379; 93005; 93010; 99284

== ENCOUNTER 2018-01-24 13:43 | Emergency (ER) ==
[2018-01-24 13:48] VITALS: BP 132/83; TEMP 98.6; BMI 44.1
--- NOTE | 2018-01-24 14:05 | ED.PDOC ---
General ED Provider: Dr. SAHIL AREVALO Chief Complaint: Abdominal Pain Stated Complaint: ABDOMINAL PAIN/ Time Seen by Physician: 14:00 (EFREM WAS PRESENT AT ALL TIMES AND DURING RECTAL EXAM. RECTAL EXAM NEGATIVE FOR GROSS BLOOD ) Mode of Arrival: Walk-In Information Source: Patient Exam Limitations: No limitations Primary Care Provider: YFN OLIVIA Nursing and Triage Documentation Reviewed and Agree: Yes Does patient meet sepsis criteria?: No System Inflammatory Response Syndrome: Not Applicable Sepsis Protocol: For patient's 13 years and over: Temp is 96.8 and below OR 101 and greater Pulse >90 BPM Resp >20/minute Acutely Altered Mental Status Are patient's symptoms suggestive of a new infection, such as: -Pneumonia -Skin, Soft Tissue -Endocarditis -UTI -Bone, Joint Infection -Implantable Device -Acute Abdominal Infection -Wound Infection -Meningitis -Blood Stream Catheter Infection -Unknown GI Complaint Exam - Abdominal Pain Complaint/Exam Onset: Gradual Duration: 1 WEEK Symptoms Are: Still present Timing: Intermittent Initial Severity: Mild Current Severity: None Location of Pain: LLQ (WAS TREATED FOR DIVERTICULITIS OUT PT ) Radiates To: Reports: LLQ. Denies: Chest, Back, Flank Character: Reports: Aching Aggravating: Reports: None Alleviating: Reports: None Associated Signs and Symptoms: Reports: Blood in stool (SMALL AMOUNTS ). Denies : Diaphoresis, Fever, Cough, Chest pain, Dizziness, Back pain, Constipation, Dysuria, Urinary frequency, Decreased urine output, Decreased appetite, Vaginal bleeding, Vaginal discharge, Nausea, Vomiting, Diarrhea, Sore throat, Decreased activity Related History: Reports: Similar episode AAA Risk Factors: Reports: None Cardiac Risk Factors: Reports: None Ectopic Risk Factors: Reports: None Ovarian Torsion Risk Factors: Reports: None Surgical Obstruction Risk Factors: Reports: None Related Surgical History: Reports: Cholecystectomy Patient Rh Status: Unknown Abdominal Findings: Present: None Rectal Exam: Present: Normal Findings Differential Diagnoses: Appendicitis, Diverticulitis, Gastroenteritis, Irritable Bowel Syndrome Review of Systems - Review Of Systems Constitutional: Reports: No symptoms Eyes: Reports: No symptoms Ears, Nose, Mouth, Throat: Reports: No symptoms Respiratory: Reports: No symptoms Cardiac: Reports: No symptoms GI: Reports: Abdominal pain, Other (minimal blood on stoolx 1 ) : Reports: No symptoms Musculoskeletal: Reports: No symptoms Skin: Reports: No symptoms Neurological: Reports: No symptoms Endocrine: Reports: No symptoms Hematologic/Lymphatic: Reports: No symptoms All Other Systems: Reviewed and Negative Past Medical History - Past Medical History Previously Healthy: Yes Endocrine: Reports: None Cardiovascular: Reports: None Respiratory: Reports: None Hematological: Reports: None Gastrointestinal: Reports: None Genitourinary: Reports: None Neuro/Psych: Reports: None Musculoskeletal: Reports: None Cancer: Reports: None Last Menstrual Period: - Surgical History General Surgical History: Reports: Cholecystectomy, Tonsillectomy, Other ( wisdom teeth ) - Family History Family History: Reports: Hypertension, Diabetes - Social History Smoking Status: Never smoker Hx Substance Use: No Alcohol Screening: Occasionally Physical Exam - Physical Exam Appearance: Well-appearing, No pain distress, Well-nourished Eyes: COURTNEY, EOMI, Conjunctiva clear ENT: Ears normal, Nose normal, Oropharynx normal Respiratory: Airway patent, Breath sounds clear, Breath sounds equal, Respirations nonlabored Cardiovascular: RRR, Pulses normal, No rub, No murmur GI/: Soft, Nontender, No masses, Bowel sounds normal, No Organomegaly Musculoskeletal: Normal strength, ROM intact, No edema, No calf tenderness Skin: Warm, Dry, Normal color Neurological: Sensation intact, Motor intact, Reflexes intact, Cranial nerves intact, Alert, Oriented Psychiatric: Affect appropriate, Mood appropriate Critical Care Note - Critical Care Note Total Time (mins): 0 Course - Course Hematology/Chemistry: 01/24/18 14:10 01/24/18 14:10 Orders, Labs, Meds: Lab Review 01/24/18 01/24/18 01/24/18 14:00 14:00 14:07 WBC RBC Hgb Hct MCV MCH MCHC RDW Coeff of [place] Plt Count Immature Gran % (Auto) Neut % (Auto) Lymph % (Auto) [place] % (Auto) Eos % (Auto) Baso % (Auto) Immature Gran # (Auto) Neut # (Auto) Lymph # (Auto) [place] # (Auto) Eos # (Auto) Baso # (Auto) Sodium Potassium Chloride Carbon Dioxide Anion Gap BUN Creatinine Estimated GFR (MDRD) BUN/Creatinine Ratio Glucose Calcium Total Bilirubin AST ALT Alkaline Phosphatase Total Protein Albumin Globulin Albumin/Globulin Ratio Amylase Lipase Urine Color Yellow Urine Clarity Clear Urine pH 7.0 Ur Specific [place] 1.020 Urine Protein Negative Urine Glucose (UA) Negative Urine Ketones Negative Urine Blood Trace-intact Urine Nitrite Negative Urine Bilirubin Negative Urine Urobilinogen 0.2 Ur Leukocyte Esterase 1+ Urine Microscopic RBC 0-2 Urine Microscopic WBC 5-10 Ur Squamous Epith Cells 30-50 Urine Bacteria Trace Urine Test Negative Stl Occult Blood (IFOB) Negative Stool Occult Blood #2 No specimen received Stool Occult Blood #3 No specimen received 01/24/18 01/24/18 14:10 14:10 WBC 8.74 RBC 4.95 Hgb 14.0 Hct 40.1 MCV 81.0 MCH 28.3 MCHC 34.9 RDW Coeff of [place] 12.8 Plt Count 290 Immature Gran % (Auto) 0.1 Neut % (Auto) 65.5 Lymph % (Auto) 27.1 [place] % (Auto) 5.8 Eos % (Auto) 1.3 Baso % (Auto) 0.2 Immature Gran # (Auto) 0.0 Neut # (Auto) 5.7 Lymph # (Auto) 2.4 [place] # (Auto) 0.5 Eos # (Auto) 0.1 Baso # (Auto) 0.0 Sodium 138 Potassium 4.1 Chloride 106 Carbon Dioxide 24 Anion Gap 12.1 BUN 10 Creatinine 0.66 Estimated GFR (MDRD) 108.00 BUN/Creatinine Ratio 15.15 Glucose 91 Calcium 9.0 Total Bilirubin 0.3 AST 21 ALT 20 Alkaline Phosphatase 78 Total Protein 7.4 Albumin 4.2 Globulin 3.2 Albumin/Globulin Ratio 1.31 Amylase 61 Lipase 77 Urine Color Urine Clarity Urine pH Ur Specific [place] Urine Protein Urine Glucose (UA) Urine Ketones Urine Blood Urine Nitrite Urine Bilirubin Urine Urobilinogen Ur Leukocyte Esterase Urine Microscopic RBC Urine Microscopic WBC Ur Squamous Epith Cells Urine Bacteria Urine Test Stl Occult Blood (IFOB) Stool Occult Blood #2 Stool Occult Blood #3 Orders Category Date Time Status AMYLASE Stat LAB 01/24/18 13:59 Ordered CBC W/ AUTO DIFF Stat LAB 01/24/18 13:59 Ordered COMPREHENSIVE METABOLIC PANEL Stat LAB 01/24/18 13:59 Ordered LIPASE Stat LAB 01/24/18 13:59 Ordered OCCULT BLOOD, STOOL Stat LAB 01/24/18 13:59 Uncollected URINALYSIS C & S IF INDICATED Stat LAB 01/24/18 13:59 Uncollected URINE CULTURE Stat LAB 01/24/18 14:07 Received URINE Stat LAB 01/24/18 14:[address] ABDOMEN/PELVIS WO CONTRAST Stat RADS 01/24/18 13:59 Ordered Vital Signs: Temp Pulse Resp BP Pulse Ox 01/24/18 13:45 98.6 F 82 16 132/83 97 Departure - Departure Time of Disposition: 16:00 Disposition: HOME SELF-CARE Discharge Problem: Abdominal pain Instructions: Abdominal Pain (ED) Condition: Good Pt referred to PMD for follow-up: Yes IPMP verified?: No Additional Instructions: Please call your Family Physician as soon as possible to schedule a follow-up appointment. YOU WOULD BEST SERVED WITH A COLONSCOPY [place] SURE YOU DO NOT HAVE CHRONS OR ULCERATIVE COLITIS . ALWAYS EXAMINE YOUR STOOLS TO SEE IF ANY BLEEDING IS GOING DO NOT IGNORE THIS PROBLEM IF IT SHOULD OCCUR . MAJOR PROBLEMS MAY BE EXIST SO DO NOT EVER IGNORE RECTAL BLEEDING HOWEVER SMALL THE Y MAY BE Allergies/Adverse Reactions: Allergies cefixime [From Suprax] Adverse Reaction (Verified 01/24/18 13:48) erythromycin ethylsuccinate [From Pediazole] Adverse Reaction (Verified 13:48) ketorolac [From Toradol] Adverse Reaction (Verified 01/24/18 13:48) Rash naproxen [From Naprosyn] Adverse Reaction (Verified 01/24/18 13:48) sulfisoxazole acetyl [From Pediazole] Adverse Reaction (Verified 01/24/18 13:48) tramadol Adverse Reaction (Verified 01/24/18 13:48) Home Medications: Ambulatory Orders Norgestimate-Ethinyl Estradiol [Tri-Sprintec Tablet] 1 tab PO DAILY 11/01/17 Metformin HCl 500 mg PO BID 12/04/17 Ciprofloxacin HCl [Cipro] 500 mg PO BID 01/24/18 Dicyclomine HCl [Bentyl] 10 mg PO QID PRN 01/24/18 Metronidazole [Flagyl] 250 mg PO TID 01/24/18
--- NOTE | 2018-01-24 15:51 | CT ---
EXAM: CT Abdomen without contrast. CT Pelvis without contrast. HISTORY: Lower abdominal pain, fever, diarrhea. COMPARISON: 01/19/2018, 07/26/2017. TECHNIQUE: Multiple axial images of the abdomen and pelvis were obtained without intravenous contras t. Images were reformatted in the sagittal and coronal plane. FINDINGS: Please note that evaluation of the abdominal and pelvic structures is limited due to lack of intravenous contrast. Lung bases are clear. No acute osseous abnormality identified. Gallbladder is absent. The liver, pancreas, spleen, adrenal glands, and kidneys demonstrate normal c ontour. No calcified renal stones or hydronephrosis identified. The bowel is normal in course and caliber without evidence for obstruction or inflammatory process. Mild colonic diverticulosis is present. The appendix is normal. Uterus demonstrates normal contour. Urinary bladder is normal. No free fluid or free air identified. IMPRESSION: No acute abnormality within the abdomen or pelvis.
== END 2018-01-24 16:07 | disposition home or self-care (01) ==
LOC: ED 13:43
DX: R10.32 Left lower quadrant pain (principal)
CPT/HCPCS: 36415; 80053; 81001; 81025; 82150; 82272; 83690; 85025; 87086; 99283

== ENCOUNTER 2018-02-09 22:40 | Emergency (ER) ==
[2018-02-09 22:52] VITALS: BP 155/103; TEMP 100; BMI 39.9
[2018-02-09] MEDS ORDERED: SODIUM CHLORIDE 1,000 ML IV STA (23:02)
--- NOTE | 2018-02-09 23:02 | ED.PDOC ---
General ED Provider: Dr. ROBB BANUELOS Chief Complaint: Abdominal Pain Stated Complaint: Patient is a 28 year old female who comes to the ER with abdominal pain for the past 3 month and has an AP to see Dr. Ren the Surgeon in 2 weeks for a colonoscopy. Today she states that she has been having Nausea and vomiting since last night . Has vomited x 5 and diarrhea x 7. Also reports fever 102 at home. Time Seen by Physician: 22:58 Mode of Arrival: Walk-In Information Source: Patient Exam Limitations: No limitations Primary Care Provider: YFN OLIVIA Nursing and Triage Documentation Reviewed and Agree: Yes Does patient meet sepsis criteria?: No System Inflammatory Response Syndrome: Not Applicable Sepsis Protocol: For patient's 13 years and over: Temp is 96.8 and below OR 101 and greater Pulse >90 BPM Resp >20/minute Acutely Altered Mental Status Are patient's symptoms suggestive of a new infection, such as: -Pneumonia -Skin, Soft Tissue -Endocarditis -UTI -Bone, Joint Infection -Implantable Device -Acute Abdominal Infection -Wound Infection -Meningitis -Blood Stream Catheter Infection -Unknown GI Complaint Exam - Vomiting/Diarrhea Complaint/Exam Onset/Duration: 24 horus Episodes of Vomiting over last 24 Hours: 5 Episodes of Diarrhea Over Last 24 Hours: 7 Initial Severity: Mild Current Severity: Moderate Character of Vomiting: Reports: Non-bilious Character of Diarrhea: Reports: Watery Aggravating: Reports: Food, Liquids Alleviating: Reports: NPO Associated Signs and Symptoms: Reports: Abdominal pain, Cramping. Denies: Dizziness, Light-headedness, Melena, Hematemesis, Fever Recent Positive Test: No Use of Oral Contraceptives: No Use of Depoprovera: No Compliant With Contraceptive Use: No Non-GI Risk Factors: Reports: None Surgical Obstruction Risk Factors: Reports: None Related Surgical History: Reports: None Abdominal Findings: Present: [place] tender [place] Respirations Present: No Differential Diagnoses: Viral Gastroenteritis, Bacterial Gastroenteritis, Pancreatitis, UTI Review of Systems - Review Of Systems Constitutional: Reports: Malaise, Weakness, Loss of appetite Eyes: Reports: No symptoms Ears, Nose, Mouth, Throat: Reports: No symptoms Respiratory: Reports: No symptoms GI: Reports: Abdominal pain, Diarrhea, Nausea, Poor appetite, Vomiting : Reports: No symptoms Musculoskeletal: Reports: No symptoms Skin: Reports: No symptoms Neurological: Reports: Anxiety, Depressed Endocrine: Reports: No symptoms All Other Systems: Reviewed and Negative Past Medical History - Past Medical History Previously Healthy: Yes Endocrine: Reports: None Cardiovascular: Reports: None Respiratory: Reports: None Hematological: Reports: None Gastrointestinal: Reports: Other (colitis ) Genitourinary: Reports: None Neuro/Psych: Reports: Migraine, Anxiety, Depression Musculoskeletal: Reports: None Cancer: Reports: None Last Menstrual Period: LAST WEEK Other Pertinent Past Medical History: polycystic ovarian syndrome in both ovaries, elevated testosterone, COLITIS - Surgical History General Surgical History: Reports: Cholecystectomy, Tonsillectomy, Other ( wisdom teeth ) - Family History Family History: Reports: Hypertension, Diabetes - Social History Smoking Status: Never smoker Hx Substance Use: No Alcohol Screening: Occasionally - Immunizations Tetanus Shot up to Date: Yes Physical Exam - Physical Exam Appearance: Ill-appearing, Obese Ill-appearing: Mild Pain Distress: Severe Eyes: COURTNEY, EOMI, Conjunctiva clear Neck: Supple Respiratory: Airway patent, Breath sounds clear, Breath sounds equal, Respirations nonlabored Cardiovascular: RRR, Pulses normal, No rub, No murmur GI/: Soft, Tender (Diffusely ) Musculoskeletal: Normal strength, ROM intact, No edema, No calf tenderness Skin: Warm, Dry, Normal color Neurological: Sensation intact, Motor intact, Reflexes intact, Cranial nerves intact, Alert, Oriented Psychiatric: Anxious Interpretation - Radiology Interpretation Radiology Interpretation By: Radiologist Radiology Results: Negative Exam Interpreted: CT Scan Re-Evaluation - Re-Evaluation Time of Re-Evaluation: 00:42 Status: Improved Critical Care Note - Critical Care Note Total Time (mins): 0 Course - Course Hematology/Chemistry: 02/09/18 23:10 02/09/18 23:10 Orders, Labs, Meds: Lab Review 02/09/18 02/09/18 02/09/18 23:10 23:10 23:10 WBC 10.83 H RBC 5.29 Hgb 14.9 Hct 43.1 MCV 81.5 MCH 28.2 MCHC 34.6 RDW Coeff of [place] 13.0 Plt Count 311 Immature Gran % (Auto) 0.2 Neut % (Auto) 73.8 Lymph % (Auto) 20.1 [place] % (Auto) 5.0 Eos % (Auto) 0.6 Baso % (Auto) 0.3 Immature Gran # (Auto) 0.0 Neut # (Auto) 8.0 H Lymph # (Auto) 2.2 [place] # (Auto) 0.5 Eos # (Auto) 0.1 Baso # (Auto) 0.0 Sodium 138.8 Potassium 4.47 Chloride 104.4 Carbon Dioxide 27.1 Anion Gap 11.77 BUN 8.9 Creatinine 0.73 Estimated GFR (MDRD) 96.00 BUN/Creatinine Ratio 12.19 Glucose 88.2 Calcium 9.07 Total Bilirubin 0.27 AST 18.4 ALT 16.3 Alkaline Phosphatase 85.1 Total Protein 7.87 Albumin 4.28 Globulin 3.59 Albumin/Globulin Ratio 1.19 Amylase 58.8 Lipase 38.5 Urine Color Yellow Urine Clarity Clear Urine pH 7.5 Ur Specific [place] 1.020 Urine Protein Negative Urine Glucose (UA) Negative Urine Ketones Negative Urine Blood Negative Urine Nitrite Negative Urine Bilirubin Negative Urine Urobilinogen 0.2 Ur Leukocyte Esterase Negative Urine Test 02/09/18 23:10 WBC RBC Hgb Hct MCV MCH MCHC RDW Coeff of [place] Plt Count Immature Gran % (Auto) Neut % (Auto) Lymph % (Auto) [place] % (Auto) Eos % (Auto) Baso % (Auto) Immature Gran # (Auto) Neut # (Auto) Lymph # (Auto) [place] # (Auto) Eos # (Auto) Baso # (Auto) Sodium Potassium Chloride Carbon Dioxide Anion Gap BUN Creatinine Estimated GFR (MDRD) BUN/Creatinine Ratio Glucose Calcium Total Bilirubin AST ALT Alkaline Phosphatase Total Protein Albumin Globulin Albumin/Globulin Ratio Amylase Lipase Urine Color Urine Clarity Urine pH Ur Specific [place] Urine Protein Urine Glucose (UA) Urine Ketones Urine Blood Urine Nitrite Urine Bilirubin Urine Urobilinogen Ur Leukocyte Esterase Urine Test Negative Orders Category Date Time Status ED IV/MEDIPORT/POWERPORT .ONCE EMERGENCY 02/09/18 23:02 Active AMYLASE Stat LAB 02/09/18 23:10 Completed CBC W/ AUTO DIFF Stat LAB 02/09/18 23:10 Completed COMPREHENSIVE METABOLIC PANEL Stat LAB 02/09/18 23:10 Completed LIPASE Stat LAB 02/09/18 23:10 Completed URINALYSIS C & S IF INDICATED Stat LAB 02/09/18 23:10 Completed URINE Stat LAB 02/09/18 23:10 Completed 0.9 % Sodium Chloride [Saline Flush] MEDS 02/09/18 23:02 Ordered 1 syr IVF PRN PRN Morphine Sulfate [Morphine 4 mg/ml Syringe] MEDS 02/09/18 23:16 Discontinued 4 mg .ROUTE .STK-MED ONE Morphine Sulfate [Morphine 4 mg/ml Vial] MEDS 02/09/18 23:09 Discontinued 4 mg IVP ONCE STA Ondansetron HCl/Pf [Zofran 4 mg/2 ml] MEDS 02/09/18 23:07 Discontinued 4 mg IVP ONCE STA Sodium Chloride 0.9% [Sodium Chloride] 1,000 ml MEDS 02/09/18 23:[address] ABD/PEL WO RENAL STONE PROT Stat RADS 02/10/18 00:01 Completed Medications Generic Name Dose Route Start Last Admin Trade Name Freq PRN Reason Stop Dose Admin Sodium Chloride 1 syr 02/09/18 23:02 02/09/18 23:25 Saline Flush IVF 1 syr PRN PRN Administration To flush IV Discontinued Medications Generic Name Dose Route Start Last Admin Trade Name Freq PRN Reason Stop Dose Admin Sodium Chloride 1,000 mls @ 1,000 mls/hr 02/09/18 23:02 02/09/18 23:26 Sodium Chloride IV 02/10/18 00:01 1,000 mls/hr BOLUS STA Administration Morphine Sulfate 4 mg 02/09/18 23:09 02/09/18 23:33 Morphine 4 Mg/Ml Vial IVP 02/09/18 23:10 Not Given ONCE STA Ondansetron HCl 4 mg 02/09/18 23:07 02/09/18 23:28 Zofran 4 Mg/2 Ml IVP 02/09/18 23:08 4 mg ONCE STA Administration Vital Signs: Temp Pulse Resp BP Pulse Ox 02/09/18 22:41 100 F H 87 20 155/103 H 98 Departure - Departure Time of Disposition: 00:42 Disposition: HOME SELF-CARE Discharge Problem: Abdominal pain Instructions: Chronic Abdominal Pain (ED) Condition: Stable Pt referred to PMD for follow-up: Yes IPMP verified?: No Additional Instructions: Continue home medications Take Bentyl as needed for pain Follow up with PCP in 3 days Prescriptions: Dicyclomine HCl [Bentyl] 10 mg PO TID PRN #20 capsule PRN Reason: Abdominal Pain Allergies/Adverse Reactions: Allergies cefixime [From Suprax] Adverse Reaction (Verified 02/09/18 22:53) Rash erythromycin ethylsuccinate [From Pediazole] Adverse Reaction (Verified 22:53) Rash ketorolac [From Toradol] Adverse Reaction (Verified 02/09/18 22:53) CANT REMEMBER naproxen [From Naprosyn] Adverse Reaction (Verified 02/09/18 22:53) BLISTERS Penicillins Adverse Reaction (Verified 02/09/18 22:53) Rash sulfisoxazole acetyl [From Pediazole] Adverse Reaction (Verified 02/09/18 22:53) Rash tramadol Adverse Reaction (Verified 02/09/18 22:53) NOSEBLEEDS, HIVES Home Medications: Ambulatory Orders Norgestimate-Ethinyl Estradiol [Tri-Sprintec Tablet] 1 tab PO DAILY 11/01/17 Metformin HCl 500 mg PO BID 12/04/17 Dicyclomine HCl [Bentyl] 10 mg PO TID PRN #20 capsule 02/10/18 Disposition Discussed With: Patient
[2018-02-09] MEDS ORDERED: ZOFRAN 4 MG/2 ML IVP STA (23:07)
[2018-02-09] MEDS ORDERED: MORPHINE 4 MG/ML VIAL IVP STA (23:09)
[2018-02-09] MEDS ORDERED: MORPHINE 4 MG/ML SYRINGE ONE (23:16)
[2018-02-09 23:30] LABS: URINE PREGNANCY TEST NEGATIVE (NEGATIVE)
--- NOTE | 2018-02-10 00:40 | CT ---
Exam: CT of the abdomen and pelvis without contrast History: Abdominal pain Technique: [address] of the abdomen and pelvis without intravascular contrast FINDINGS: The lung bases are clear. No significant liver abnormality. The adrenals, pancreas and spl een are unremarkable. The stomach and hiatus are unremarkable.Prior cholecystectomy. The appendix is normal. Bowel loops demonstrate normal caliber. No inflamatory change seen in the mesentery or retro peritoneum. Kidneys and proximal collecting system are unremarkable. Vascular structures appear brady l by noncontrast CT. A few sigmoid colonic diverticula. No pelvic fat inflammation. Normal pelvic genitourinary structur es. No acute findings of the skeleton. Impression: 1. No inflammatory process, bowel or urinary obstruction is seen. 2. Colonic diverticulosis without evidence of acute diverticulitis.
[2018-02-10] MEDS ORDERED: BENTYL IM STA (00:48)
== END 2018-02-10 01:25 | disposition home or self-care (01) ==
LOC: ED 22:40
DX: R10.9 Unspecified abdominal pain (principal); R11.2 Nausea with vomiting, unspecified; R19.7 Diarrhea, unspecified
CPT/HCPCS: 36415; 74176; 80053; 81001; 81025; 82150; 83690; 85025; 96361; 96372; 96374; 96375; 99283

== ENCOUNTER 2018-03-04 21:04 | Emergency (ER) ==
[2018-03-04 21:18] VITALS: BP 172/74; TEMP 98.7; BMI 41.3
--- NOTE | 2018-03-04 22:24 | ED.PDOC ---
General ED Provider: Dr. ROBB BANUELOS Chief Complaint: Abdominal Pain Stated Complaint: Patient returns with similar chronic lower abdominal pain. has been followed by multple providers and was told not to see pcp until she has had her colonoscopy. pain has not changed. Has been taking bentyl but does not help. She was told by pcp to stop Metfromin started by OBGYN for PCOS. Comes to the ER with worsening of lower abdominal pain but states it is the same as prior. Time Seen by Physician: 21:30 Mode of Arrival: Walk-In Information Source: Patient Exam Limitations: No limitations Primary Care Provider: YFN OLIVIA Nursing and Triage Documentation Reviewed and Agree: Yes Does patient meet sepsis criteria?: No System Inflammatory Response Syndrome: Not Applicable Sepsis Protocol: For patient's 13 years and over: Temp is 96.8 and below OR 101 and greater Pulse >90 BPM Resp >20/minute Acutely Altered Mental Status Are patient's symptoms suggestive of a new infection, such as: -Pneumonia -Skin, Soft Tissue -Endocarditis -UTI -Bone, Joint Infection -Implantable Device -Acute Abdominal Infection -Wound Infection -Meningitis -Blood Stream Catheter Infection -Unknown Review of Systems - Review Of Systems Constitutional: Reports: No symptoms Eyes: Reports: No symptoms Ears, Nose, Mouth, Throat: Reports: No symptoms Respiratory: Reports: No symptoms Cardiac: Reports: No symptoms GI: Reports: Abdominal pain, Constipated (last Bowel movement was yester day ), Diarrhea (loose stool when she gets Diarrhea. ) : Reports: No symptoms Musculoskeletal: Reports: No symptoms Skin: Reports: No symptoms Neurological: Reports: Anxiety Endocrine: Reports: No symptoms Hematologic/Lymphatic: Reports: No symptoms All Other Systems: Reviewed and Negative Past Medical History - Past Medical History Previously Healthy: Yes Endocrine: Reports: None Cardiovascular: Reports: None Respiratory: Reports: None Hematological: Reports: None Gastrointestinal: Reports: Other (colitis ) Genitourinary: Reports: None Neuro/Psych: Reports: Migraine, Anxiety, Depression Musculoskeletal: Reports: None Cancer: Reports: None Last Menstrual Period: 9-12-18 Other Pertinent Past Medical History: polycystic ovarian syndrome in both ovaries, elevated testosterone, COLITIS - Surgical History General Surgical History: Reports: Cholecystectomy, Tonsillectomy, Other ( wisdom teeth ) - Family History Family History: Reports: Hypertension, Diabetes - Social History Smoking Status: Never smoker Hx Substance Use: No Alcohol Screening: None - Immunizations Tetanus Shot up to Date: Yes Physical Exam - Physical Exam Appearance: Ill-appearing, Obese Ill-appearing: Moderate Pain Distress: Severe Eyes: COURTNEY, EOMI, Conjunctiva clear ENT: Ears normal, Nose normal, Oropharynx normal Respiratory: Airway patent, Breath sounds clear, Breath sounds equal, Respirations nonlabored Cardiovascular: RRR, Pulses normal, No rub, No murmur GI/: Soft, No masses, Bowel sounds normal, No Organomegaly, Tender ( Suprapubic area. ) Musculoskeletal: Normal strength, ROM intact, No edema, No calf tenderness Skin: Warm, Dry, Normal color Neurological: Sensation intact, Motor intact, Reflexes intact, Cranial nerves intact, Alert, Oriented Psychiatric: Affect appropriate, Mood appropriate Critical Care Note - Critical Care Note Total Time (mins): 0 Course - Course Hematology/Chemistry: 03/04/18 22:05 03/04/18 22:05 Orders, Labs, Meds: Lab Review 03/04/18 03/04/18 03/04/18 22:05 22:05 22:05 WBC 9.95 RBC 4.91 Hgb 13.9 Hct 40.1 MCV 81.7 MCH 28.3 MCHC 34.7 RDW Coeff of [place] 13.0 Plt Count 307 Immature Gran % (Auto) 0.5 Neut % (Auto) 58.0 Lymph % (Auto) 34.1 [place] % (Auto) 5.4 Eos % (Auto) 1.7 Baso % (Auto) 0.3 Immature Gran # (Auto) 0.1 Neut # (Auto) 5.8 Lymph # (Auto) 3.4 [place] # (Auto) 0.5 Eos # (Auto) 0.2 Baso # (Auto) 0.0 Sodium 138.6 Potassium 4.17 Chloride 106.8 Carbon Dioxide 28.8 Anion Gap 7.17 BUN 11.3 Creatinine 0.78 Estimated GFR (MDRD) 89.00 BUN/Creatinine Ratio 14.48 Glucose 95.3 Calcium 8.34 L Total Bilirubin 0.24 AST 26.2 ALT 14.5 Alkaline Phosphatase 77.1 Total Protein 6.64 Albumin 3.84 Globulin 2.80 Albumin/Globulin Ratio 1.37 Amylase 53.1 Lipase 80.0 Urine Color Yellow Urine Clarity Clear Urine pH 7.0 Ur Specific [place] 1.020 Urine Protein Negative Urine Glucose (UA) Negative Urine Ketones Negative Urine Blood Negative Urine Nitrite Negative Urine Bilirubin Negative Urine Urobilinogen 0.2 Ur Leukocyte Esterase Negative Orders Category Date Time Status AMYLASE Stat LAB 03/04/18 22:05 Completed CBC W/ AUTO DIFF Stat LAB 03/04/18 22:05 Completed COMPREHENSIVE METABOLIC PANEL Stat LAB 03/04/18 22:05 Completed LIPASE Stat LAB 03/04/18 22:05 Completed URINALYSIS C & S IF INDICATED Stat LAB 03/04/18 22:05 Completed Hydrocodone Bit/Acetaminophen [Geff 5-325] MEDS 03/04/18 22:25 Discontinued 1 tab PO ONCE STA Medications Discontinued Medications Generic Name Dose Route Start Last Admin Trade Name Freq PRN Reason Stop Dose Admin Hydrocodone Bitart/Acetaminophen 1 tab 03/04/18 22:25 03/04/18 22:50 Geff 5-325 PO 03/04/18 22:26 1 tab ONCE STA Administration Vital Signs: Temp Pulse Resp BP Pulse Ox 03/04/18 21:04 98.7 F 107 H 20 172/74 H 97 Departure - Departure Time of Disposition: 23:00 Disposition: HOME SELF-CARE Discharge Problem: Abdominal pain, chronic, bilateral lower quadrant Instructions: Chronic Abdominal Pain (ED) Condition: Good Pt referred to PMD for follow-up: Yes IPMP verified?: No Additional Instructions: take Medications as prescribed Follow up with your PCP in the morning. Prescriptions: Hydrocodone Bit/Acetaminophen [Geff 5-325] 1 each PO Q6HR PRN #7 tablet PRN Reason: severe pain Allergies/Adverse Reactions: Allergies amoxicillin Adverse Reaction (Verified 03/04/18 21:19) Rash cefixime [From Suprax] Adverse Reaction (Verified 02/09/18 22:53) Rash erythromycin ethylsuccinate [From Pediazole] Adverse Reaction (Verified 22:53) Rash ketorolac [From Toradol] Adverse Reaction (Verified 02/09/18 22:53) CANT REMEMBER naproxen [From Naprosyn] Adverse Reaction (Verified 02/09/18 22:53) BLISTERS Penicillins Adverse Reaction (Verified 02/09/18 22:53) Rash sulfisoxazole acetyl [From Pediazole] Adverse Reaction (Verified 02/09/18 22:53) Rash tramadol Adverse Reaction (Verified 02/09/18 22:53) NOSEBLEEDS, HIVES Home Medications: Ambulatory Orders Norgestimate-Ethinyl Estradiol [Tri-Sprintec Tablet] 1 tab PO DAILY 11/01/17 Metformin HCl 500 mg PO BID 12/04/17 Dicyclomine HCl [Bentyl] 10 mg PO TID PRN #20 capsule 02/10/18 Hydrocodone Bit/Acetaminophen [Geff 5-325] 1 each PO Q6HR PRN #7 tablet Disposition Discussed With: Patient, Family
[2018-03-04] MEDS ORDERED: NORCO 5-325 PO STA (22:25)
== END 2018-03-04 23:09 | disposition home or self-care (01) ==
LOC: ED 21:04
DX: R10.30 Lower abdominal pain, unspecified (principal); G89.29 Other chronic pain
CPT/HCPCS: 36415; 80053; 81001; 82150; 83690; 85025; 99283

== ENCOUNTER 2018-03-21 20:48 | Emergency (ER) ==
[2018-03-21 20:52] VITALS: BP 113/71; TEMP 98.1; BMI 40.7
[2018-03-21] MEDS ORDERED: PHENERGAN 25 MG/ML VIAL IM STA (20:55)
[2018-03-21] MEDS ORDERED: DILAUDID 1 MG/ML SYRINGE IM STA ×2 (20:55→21:38)
--- NOTE | 2018-03-21 22:20 | CT ---
Exam: CT of the abdomen and pelvis without contrast History: Right lower quadrant pain Technique: [address] of the abdomen pelvis without intravascular contrast FINDINGS: The lung bases are clear. No significant liver abnormality. The adrenals, pancreas and spl een are unremarkable. The stomach and hiatus are unremarkable.Prior cholecystectomy. The appendix is normal. Bowel loops demonstrate normal caliber. No inflamatory change seen in the mesentery or retro peritoneum. A few sigmoid colonic diverticula. No pelvic fat inflammation. Normal pelvic genitourinary structur es. No acute findings of the skeleton. Impression: 1. No inflammatory process, bowel or urinary obstruction is seen. No acute findings of the abdomen or pelvis. 2. A few sigmoid colonic diverticula
[2018-03-21] MEDS ORDERED: BENTYL IM STA (22:52)
--- NOTE | 2018-03-21 22:54 | ED.PDOC ---
General ED Provider: Dr. FRANCO ADORNO-ER Chief Complaint: Abdominal Pain Stated Complaint: peter had this pain for 5mos---i cant get a colonoscopy still may---dicyclomine usually helps but i am out Time Seen by Physician: 20:50 Mode of Arrival: Walk-In Information Source: Patient Exam Limitations: No limitations Primary Care Provider: YFN OLIVIA Nursing and Triage Documentation Reviewed and Agree: Yes Does patient meet sepsis criteria?: No System Inflammatory Response Syndrome: Not Applicable Sepsis Protocol: For patient's 13 years and over: Temp is 96.8 and below OR 101 and greater Pulse >90 BPM Resp >20/minute Acutely Altered Mental Status Are patient's symptoms suggestive of a new infection, such as: -Pneumonia -Skin, Soft Tissue -Endocarditis -UTI -Bone, Joint Infection -Implantable Device -Acute Abdominal Infection -Wound Infection -Meningitis -Blood Stream Catheter Infection -Unknown GI Complaint Exam - Abdominal Pain Complaint/Exam Onset: Gradual Duration: 5 mos Symptoms Are: Still present Timing: Intermittent Initial Severity: Mild Current Severity: Moderate Location of Pain: Discrete, RLQ Radiates To: Reports: Back, Flank Character: Reports: Dull, Aching, Cramping Alleviating: Reports: Spontaneous resolution Associated Signs and Symptoms: Denies: Diaphoresis, Fever, Cough, Chest pain, Dizziness, Back pain, Constipation, Blood in stool, Dysuria, Urinary frequency, Decreased urine output, Decreased appetite, Vaginal bleeding, Vaginal discharge , Nausea, Vomiting, Diarrhea, Sore throat, Decreased activity Surgical Obstruction Risk Factors: Reports: None Patient Rh Status: Unknown Abdominal Findings: Present: None Differential Diagnoses: Irritable Bowel Syndrome Review of Systems - Review Of Systems Constitutional: Reports: No symptoms Eyes: Reports: No symptoms Ears, Nose, Mouth, Throat: Reports: No symptoms Respiratory: Reports: No symptoms Cardiac: Reports: No symptoms GI: Reports: Abdominal pain : Reports: No symptoms Musculoskeletal: Reports: No symptoms Skin: Reports: No symptoms Neurological: Reports: No symptoms Endocrine: Reports: No symptoms Hematologic/Lymphatic: Reports: No symptoms All Other Systems: Reviewed and Negative Past Medical History - Past Medical History Previously Healthy: Yes Endocrine: Reports: None Cardiovascular: Reports: None Respiratory: Reports: None Hematological: Reports: None Gastrointestinal: Reports: Other (colitis ) Genitourinary: Reports: None Neuro/Psych: Reports: Migraine, Anxiety, Depression Musculoskeletal: Reports: None Cancer: Reports: None Last Menstrual Period: 12 of March Other Pertinent Past Medical History: polycystic ovarian syndrome in both ovaries, elevated testosterone, COLITIS - Surgical History General Surgical History: Reports: Cholecystectomy, Tonsillectomy, Other ( wisdom teeth ) - Family History Family History: Reports: Hypertension, Diabetes - Social History Smoking Status: Never smoker Hx Substance Use: No Alcohol Screening: None - Immunizations Tetanus Shot up to Date: Yes Physical Exam - Physical Exam Appearance: Well-appearing, No pain distress, Well-nourished Pain Distress: Moderate Eyes: COURTNEY, EOMI, Conjunctiva clear ENT: Ears normal, Nose normal, Oropharynx normal Neck: Supple Respiratory: Airway patent Cardiovascular: RRR, Pulses normal, No rub, No murmur GI/: Soft, Nontender, No masses, Bowel sounds normal, No Organomegaly Musculoskeletal: Normal strength Skin: Warm Neurological: Sensation intact, Motor intact, Reflexes intact, Cranial nerves intact, Alert, Oriented Psychiatric: Affect appropriate, Mood appropriate Interpretation - Radiology Interpretation Radiology Interpretation By: Radiologist Radiology Results: Negative Exam Interpreted: CT Scan Critical Care Note - Critical Care Note Total Time (mins): 0 Course - Course Hematology/Chemistry: 03/21/18 21:05 03/21/18 21:05 Orders, Labs, Meds: Lab Review 03/21/18 03/21/18 03/21/18 21:05 21:05 21:05 WBC 9.21 RBC 4.95 Hgb 13.8 Hct 39.8 MCV 80.4 L MCH 27.9 MCHC 34.7 RDW Coeff of [place] 12.6 Plt Count 312 Immature Gran % (Auto) 0.2 Neut % (Auto) 63.1 Lymph % (Auto) 29.9 [place] % (Auto) 5.2 Eos % (Auto) 1.4 Baso % (Auto) 0.2 Immature Gran # (Auto) 0.0 Neut # (Auto) 5.8 Lymph # (Auto) 2.8 [place] # (Auto) 0.5 Eos # (Auto) 0.1 Baso # (Auto) 0.0 ESR 13 Sodium 136.5 L Potassium 3.96 Chloride 104.2 Carbon Dioxide 25.3 Anion Gap 10.96 BUN 11.8 Creatinine 0.67 Estimated GFR (MDRD) 106.00 BUN/Creatinine Ratio 17.61 Glucose 104.3 Calcium 8.79 Total Bilirubin 0.29 AST 27.2 ALT 16.9 Alkaline Phosphatase 94.7 Total Protein 7.36 Albumin 4.29 Globulin 3.07 Albumin/Globulin Ratio 1.39 Amylase 48.4 Lipase 69.3 Serum , Qual Negative Urine Color Urine Clarity Urine pH Ur Specific [place] Urine Protein Urine Glucose (UA) Urine Ketones Urine Blood Urine Nitrite Urine Bilirubin Urine Urobilinogen Ur Leukocyte Esterase 03/21/18 21:05 WBC RBC Hgb Hct MCV MCH MCHC RDW Coeff of [place] Plt Count Immature Gran % (Auto) Neut % (Auto) Lymph % (Auto) [place] % (Auto) Eos % (Auto) Baso % (Auto) Immature Gran # (Auto) Neut # (Auto) Lymph # (Auto) [place] # (Auto) Eos # (Auto) Baso # (Auto) ESR Sodium Potassium Chloride Carbon Dioxide Anion Gap BUN Creatinine Estimated GFR (MDRD) BUN/Creatinine Ratio Glucose Calcium Total Bilirubin AST ALT Alkaline Phosphatase Total Protein Albumin Globulin Albumin/Globulin Ratio Amylase Lipase Serum , Qual Urine Color Yellow Urine Clarity Clear Urine pH 5.5 Ur Specific [place] 1.025 Urine Protein Negative Urine Glucose (UA) Negative Urine Ketones Negative Urine Blood Negative Urine Nitrite Negative Urine Bilirubin Negative Urine Urobilinogen 0.2 Ur Leukocyte Esterase Negative Orders Category Date Time Status AMYLASE Stat LAB 03/21/18 21:05 Completed CBC W/ AUTO DIFF Stat LAB 03/21/18 21:05 Completed COMPREHENSIVE METABOLIC PANEL Stat LAB 03/21/18 21:05 Completed ESR Stat LAB 03/21/18 21:05 Completed LIPASE Stat LAB 03/21/18 21:05 Completed SERUM Stat LAB 03/21/18 21:05 Completed URINALYSIS C & S IF INDICATED Stat LAB 03/21/18 21:05 Completed Dicyclomine Inj [Bentyl] MEDS 03/21/18 22:52 Stat 20 mg IM ONCE STA Hydromorphone HCl [Dilaudid 1 mg/ml Syringe] MEDS 03/21/18 20:55 Discontinued 1 mg IM ONCE STA Hydromorphone HCl [Dilaudid 1 mg/ml Syringe] MEDS 03/21/18 21:38 Discontinued 1 mg IM ONCE STA Promethazine HCl [Phenergan 25 mg/ml Vial] MEDS 03/21/18 20:55 Discontinued 25 mg IM ONCE STA CT ABDOMEN/PELVIS WO CONTRAST Stat RADS 03/21/18 20:55 Completed Medications Generic Name Dose Route Start Last Admin Trade Name Wai PRN Reason Stop Dose Admin Dicyclomine HCl 20 mg 03/21/18 22:52 Bentyl IM 03/21/18 22:53 ONCE STA Discontinued Medications Generic Name Dose Route Start Last Admin Trade Name Wai PRN Reason Stop Dose Admin Hydromorphone HCl 1 mg 03/21/18 20:55 03/21/18 21:02 Dilaudid 1 Mg/Ml Syringe IM 03/21/18 20:56 1 mg ONCE STA Administration Hydromorphone HCl 1 mg 03/21/18 21:38 03/21/18 21:49 Dilaudid 1 Mg/Ml Syringe IM 03/21/18 21:39 1 mg ONCE STA Administration Promethazine HCl 25 mg 03/21/18 20:55 03/21/18 21:03 Phenergan 25 Mg/Ml Vial IM 03/21/18 20:56 25 mg ONCE STA Administration Vital Signs: Temp Pulse Resp BP Pulse Ox 03/21/18 20:49 98.1 F 104 H 20 113/71 97 Departure - Departure Time of Disposition: 22:55 Disposition: HOME SELF-CARE Discharge Problem: Chronic abdominal pain Instructions: Chronic Abdominal Pain (ED) Condition: Good Pt referred to PMD for follow-up: No IPMP verified?: No Additional Instructions: bentyl 10mg qid prn pain #30--f/u with pcp next week Allergies/Adverse Reactions: Allergies amoxicillin Adverse Reaction (Verified 03/04/18 21:19) Rash cefixime [From Suprax] Adverse Reaction (Verified 02/09/18 22:53) Rash erythromycin ethylsuccinate [From Pediazole] Adverse Reaction (Verified 22:53) Rash ketorolac [From Toradol] Adverse Reaction (Verified 02/09/18 22:53) CANT REMEMBER naproxen [From Naprosyn] Adverse Reaction (Verified 02/09/18 22:53) BLISTERS Penicillins Adverse Reaction (Verified 02/09/18 22:53) Rash sulfisoxazole acetyl [From Pediazole] Adverse Reaction (Verified 02/09/18 22:53) Rash tramadol Adverse Reaction (Verified 02/09/18 22:53) NOSEBLEEDS, HIVES Home Medications: Ambulatory Orders Norgestimate-Ethinyl Estradiol [Tri-Sprintec Tablet] 1 tab PO DAILY 11/01/17 Disposition Discussed With: Patient, Family
== END 2018-03-21 23:20 | disposition home or self-care (01) ==
LOC: ED 20:48
DX: R10.9 Unspecified abdominal pain (principal); G89.29 Other chronic pain
CPT/HCPCS: 36415; 80053; 81001; 82150; 83690; 84703; 85025; 85651; 96372; 99283

== ENCOUNTER 2018-06-03 19:29 | Emergency (ER) ==
[2018-06-03 19:33] VITALS: BP 138/78; TEMP 98.2; BMI 40.2
--- NOTE | 2018-06-03 19:39 | ED.PDOC ---
General ED Provider: Dr. FRANCO ADORNO-ER Chief Complaint: Bite Stated Complaint: peter got a bite on my leg Time Seen by Physician: 19:37 Mode of Arrival: Walk-In Information Source: Patient Exam Limitations: No limitations Primary Care Provider: YFN OLIVIA Nursing and Triage Documentation Reviewed and Agree: Yes Does patient meet sepsis criteria?: No System Inflammatory Response Syndrome: Not Applicable Sepsis Protocol: For patient's 13 years and over: Temp is 96.8 and below OR 101 and greater Pulse >90 BPM Resp >20/minute Acutely Altered Mental Status Are patient's symptoms suggestive of a new infection, such as: -Pneumonia -Skin, Soft Tissue -Endocarditis -UTI -Bone, Joint Infection -Implantable Device -Acute Abdominal Infection -Wound Infection -Meningitis -Blood Stream Catheter Infection -Unknown Skin Complaint Exam - Skin/Soft Tissue Complaint/Exam Onset/Duration: 3 days Symptoms Are: Still present Initial Severity: Mild Current Severity: Mild Location: right calf Character: Reports: Redness, Raised Aggravating: Reports: Touch Associated Signs and Symptoms: Reports: Tenderness. Denies: Fever, Chills, Itching, Drainage, Red streaks, Joint swelling Related History: Reports: Insect bite/sting Related Surgical History: Reports: None Skin Findings: Present: Erythema Joint Tenderness Present: No Differential Diagnoses: Infection Review of Systems - Review Of Systems Constitutional: Reports: No symptoms Eyes: Reports: No symptoms Ears, Nose, Mouth, Throat: Reports: No symptoms Respiratory: Reports: No symptoms Cardiac: Reports: No symptoms GI: Reports: No symptoms : Reports: No symptoms Musculoskeletal: Reports: No symptoms Skin: Reports: Lesions Neurological: Reports: No symptoms Endocrine: Reports: No symptoms Hematologic/Lymphatic: Reports: No symptoms All Other Systems: Reviewed and Negative Past Medical History - Past Medical History Previously Healthy: Yes Endocrine: Reports: None Cardiovascular: Reports: None Respiratory: Reports: None Hematological: Reports: None Gastrointestinal: Reports: Other (colitis ) Genitourinary: Reports: None Neuro/Psych: Reports: Migraine, Anxiety, Depression Musculoskeletal: Reports: None Cancer: Reports: None Last Menstrual Period: current Other Pertinent Past Medical History: polycystic ovarian syndrome in both ovaries, elevated testosterone, COLITIS - Surgical History General Surgical History: Reports: Cholecystectomy, Tonsillectomy, Other ( wisdom teeth ) - Family History Family History: Reports: Hypertension, Diabetes - Social History Smoking Status: Never smoker Hx Substance Use: No Alcohol Screening: Occasionally - Immunizations Tetanus Shot up to Date: Yes Physical Exam - Physical Exam Appearance: Well-appearing, No pain distress, Well-nourished Eyes: COURTNEY, EOMI, Conjunctiva clear ENT: Ears normal, Nose normal, Oropharynx normal Neck: Supple Respiratory: Airway patent, Breath sounds clear, Breath sounds equal, Respirations nonlabored Cardiovascular: RRR, Pulses normal, No rub, No murmur GI/: Soft, Nontender, No masses, Bowel sounds normal, No Organomegaly Musculoskeletal: Normal strength, ROM intact, No edema, No calf tenderness Skin: Warm, Dry, Normal color Neurological: Sensation intact, Motor intact, Reflexes intact, Cranial nerves intact, Alert, Oriented Critical Care Note - Critical Care Note Total Time (mins): 0 Course - Course Vital Signs: Temp Pulse Resp BP Pulse Ox 06/03/18 19:31 98.2 F 102 H 14 138/78 98 Departure - Departure Time of Disposition: 19:39 Disposition: HOME SELF-CARE Discharge Problem: Spider bite Qualifiers: Encounter type: initial encounter Injury intent: accidental or unintentional Qualified Code(s): T63.301A - Toxic effect of unspecified spider venom, accidental (unintentional), initial encounter Instructions: Insect Bite or Sting (ED) Condition: Good Pt referred to PMD for follow-up: Yes IPMP verified?: No Additional Instructions: wash with soap and water daily---clindamycin 300mg qid x 7 days---f/u with pcsp Allergies/Adverse Reactions: Allergies amoxicillin Adverse Reaction (Verified 06/03/18 19:33) Rash cefixime [From Suprax] Adverse Reaction (Verified 06/03/18 19:33) Rash erythromycin ethylsuccinate [From Pediazole] Adverse Reaction (Verified 19:33) Rash ketorolac [From Toradol] Adverse Reaction (Verified 06/03/18 19:33) CANT REMEMBER naproxen [From Naprosyn] Adverse Reaction (Verified 06/03/18 19:33) BLISTERS Penicillins Adverse Reaction (Verified 06/03/18 19:33) Rash sulfisoxazole acetyl [From Pediazole] Adverse Reaction (Verified 06/03/18 19:33) Rash tramadol Adverse Reaction (Verified 06/03/18 19:33) NOSEBLEEDS, HIVES Home Medications: Ambulatory Orders Norgestimate-Ethinyl Estradiol [Tri-Sprintec Tablet] 1 tab PO DAILY 11/01/17 Disposition Discussed With: Patient
== END 2018-06-03 19:45 | disposition home or self-care (01) ==
LOC: ED 19:29
DX: T63.301A Toxic effect of unspecified spider venom, accidental (unintentional), initial encounter (principal)
CPT/HCPCS: 99282

== ENCOUNTER 2018-06-25 20:32 | Emergency (ER) ==
[2018-06-25 20:32] VITALS: BMI 40.2
[2018-06-25 20:34] VITALS: TEMP 98
[2018-06-25 21:10] VITALS: BP 123/72
--- NOTE | 2018-06-25 21:28 | ED.PDOC ---
General ED Provider: Dr. KOKI CISNEROS Chief Complaint: Chest Pain Stated Complaint: feeling of tightness in the chest,may change wqith deep breath,no distress Time Seen by Physician: 01:36 Mode of Arrival: Walk-In Information Source: Patient Exam Limitations: No limitations Primary Care Provider: RACQUEL SÁNCHEZ Referred to ED by: Other Nursing and Triage Documentation Reviewed and Agree: Yes Does patient meet sepsis criteria?: No System Inflammatory Response Syndrome: Not Applicable Sepsis Protocol: For patient's 13 years and over: Temp is 96.8 and below OR 101 and greater Pulse >90 BPM Resp >20/minute Acutely Altered Mental Status Are patient's symptoms suggestive of a new infection, such as: -Pneumonia -Skin, Soft Tissue -Endocarditis -UTI -Bone, Joint Infection -Implantable Device -Acute Abdominal Infection -Wound Infection -Meningitis -Blood Stream Catheter Infection -Unknown Respiratory Complaint Exam - Respiratory Complaint/Exam Onset/Duration: few days Symptoms Are: Still present Timing: Intermittent Initial Severity: Mild Current Severity: Mild Location: Unknown Aggravating: Reports: Exertion Alleviating: Reports: Upright position Associated Signs and Symptoms: Reports: Chest pain Related History: Reports: Similar episode History of Healthcare-Acquired Pneumonia: No Related Surgical History: Reports: None Pulmonary Embolism Risk Factors: None Cardiac Risk Factors: Reports: None Pseudomonas Risk Factors: Reports: None Tuberculosis Risk Factors: Reports: Communal living Status Asthmaticus Risk Factors: Reports: None Home Oxygen Use: No Recent Stress Test: No Recent Echo/LV Function: No Current Antibiotic Use: No Current Asthma Medication Use: No Respiratory Distress: None Inadequate Respiratory Effort: No Dysphagia Present: No Stridor Present: No JVD Present: No Accessory Muscle Use: No Retractions: Not Present Diminished Breath Sounds: No Sinus Tenderness: None Grunting Respirations: No Kussmaul Respirations: No Differential Diagnoses: Pneumonia, Pulmonary Embolism Review of Systems - Review Of Systems Constitutional: Reports: No symptoms Eyes: Reports: No symptoms Ears, Nose, Mouth, Throat: Reports: No symptoms Respiratory: Reports: Other Cardiac: Reports: No symptoms GI: Reports: No symptoms : Reports: No symptoms Musculoskeletal: Reports: No symptoms Skin: Reports: No symptoms Neurological: Reports: No symptoms Endocrine: Reports: No symptoms Hematologic/Lymphatic: Reports: No symptoms All Other Systems: Reviewed and Negative Past Medical History - Past Medical History Previously Healthy: Yes Endocrine: Reports: None Cardiovascular: Reports: None Respiratory: Reports: None Hematological: Reports: None Gastrointestinal: Reports: Other (colitis ) Genitourinary: Reports: None Neuro/Psych: Reports: Migraine, Anxiety, Depression Musculoskeletal: Reports: None Cancer: Reports: None Last Menstrual Period: 1 week Other Pertinent Past Medical History: polycystic ovarian syndrome in both ovaries, elevated testosterone, COLITIS - Surgical History General Surgical History: Reports: Cholecystectomy, Tonsillectomy, Other ( wisdom teeth ) - Family History Family History: Reports: Hypertension, Diabetes - Social History Smoking Status: Never smoker Hx Substance Use: No Alcohol Screening: Occasionally - Immunizations Tetanus Shot up to Date: Yes Physical Exam - Physical Exam Appearance: Well-appearing Ill-appearing: None Pain Distress: None Eyes: COURTNEY ENT: Ears normal Neck: Supple Respiratory: Airway patent Cardiovascular: RRR GI/: Soft Musculoskeletal: Normal strength Skin: Warm Neurological: Sensation intact Critical Care Note - Critical Care Note Total Time (mins): 0 Course - Course Hematology/Chemistry: 06/25/18 21:40 06/25/18 21:40 Orders, Labs, Meds: Lab Review 06/25/18 06/25/18 06/25/18 21:40 21:40 21:40 WBC 8.80 RBC 4.94 Hgb 13.7 Hct 40.5 MCV 82.0 MCH 27.7 MCHC 33.8 RDW Coeff of [place] 12.9 Plt Count 319 Immature Gran % (Auto) 0.2 Neut % (Auto) 51.0 Lymph % (Auto) 39.8 [place] % (Auto) 6.4 Eos % (Auto) 2.4 Baso % (Auto) 0.2 Immature Gran # (Auto) 0.0 Neut # (Auto) 4.5 Lymph # (Auto) 3.5 H [place] # (Auto) 0.6 Eos # (Auto) 0.2 Baso # (Auto) 0.0 D-Dimer (Manual) 208.44 Sodium 141.3 Potassium 4.27 Chloride 102.7 Carbon Dioxide 30.5 H Anion Gap 12.37 BUN 10.9 Creatinine 0.65 Estimated GFR (MDRD) 110.00 BUN/Creatinine Ratio 16.76 Glucose 82.8 Calcium 8.80 Total Bilirubin 0.25 AST 21.8 ALT 22.6 Alkaline Phosphatase 87.8 Total Protein 7.06 Albumin 4.13 Globulin 2.93 Albumin/Globulin Ratio 1.40 Serum , Qual 06/25/18 22:00 WBC RBC Hgb Hct MCV MCH MCHC RDW Coeff of [place] Plt Count Immature Gran % (Auto) Neut % (Auto) Lymph % (Auto) [place] % (Auto) Eos % (Auto) Baso % (Auto) Immature Gran # (Auto) Neut # (Auto) Lymph # (Auto) [place] # (Auto) Eos # (Auto) Baso # (Auto) D-Dimer (Manual) Sodium Potassium Chloride Carbon Dioxide Anion Gap BUN Creatinine Estimated GFR (MDRD) BUN/Creatinine Ratio Glucose Calcium Total Bilirubin AST ALT Alkaline Phosphatase Total Protein Albumin Globulin Albumin/Globulin Ratio Serum , Qual Negative Orders Category Date Time Status EKG-(ED ONLY) Stat CARDIO 06/25/18 20:35 Completed NPO REMINDER: IMAGING ONCE CARE 06/25/18 23:11 Active IV [ED IV/MEDIPORT/POWERPORT] .ONCE EMERGENCY 06/25/18 23:29 Active CBC W/ AUTO DIFF Stat LAB 06/25/18 21:40 Completed CMP [COMPREHENSIVE METABOLIC PANEL] Stat LAB 06/25/18 21:40 Completed D-DIMER Stat LAB 06/25/18 21:40 Completed SERUM Stat LAB 06/25/18 22:00 Completed 0.9 % Sodium Chloride [Saline Flush] MEDS 06/25/18 23:29 Ordered 1 syr IVF PRN PRN Morphine Sulfate [Morphine 2 mg/ml Syringe] MEDS 06/26/18 00:38 Discontinued 2 mg .ROUTE .STK-MED ONE Morphine Sulfate [Morphine 2 mg/ml Syringe] MEDS 06/26/18 00:36 Discontinued 2 mg IVP ONCE STA CHEST, 2 VIEWS PA & LAT Stat RADS 06/25/18 21:[address] CHEST PE PROTOCOL Stat RADS 06/25/18 23:10 Completed Medications Generic Name Dose Route Start Last Admin Trade Name Freq PRN Reason Stop Dose Admin Sodium Chloride 1 syr 06/25/18 23:29 Saline Flush IVF PRN PRN To flush IV Discontinued Medications Generic Name Dose Route Start Last Admin Trade Name Freq PRN Reason Stop Dose Admin Morphine Sulfate 2 mg 06/26/18 00:36 06/26/18 00:41 Morphine 2 Mg/Ml Syringe IVP 06/26/18 00:37 2 mg ONCE STA Administration Vital Signs: Temp Pulse Resp BP Pulse Ox 06/25/18 21:09 88 123/72 99 06/25/18 20:32 98 F 92 H 18 130/84 97 Departure - Departure Time of Disposition: 01:35 Disposition: HOME SELF-CARE Discharge Problem: Nonspecific chest pain Instructions: Angina (ED) Condition: Good Pt referred to PMD for follow-up: Yes IPMP verified?: No Additional Instructions: follow up w/ pcp Allergies/Adverse Reactions: Allergies amoxicillin Adverse Reaction (Verified 06/03/18 19:33) Rash cefixime [From Suprax] Adverse Reaction (Verified 06/03/18 19:33) Rash erythromycin ethylsuccinate [From Pediazole] Adverse Reaction (Verified 19:33) Rash ketorolac [From Toradol] Adverse Reaction (Verified 06/03/18 19:33) CANT REMEMBER naproxen [From Naprosyn] Adverse Reaction (Verified 06/03/18 19:33) BLISTERS Penicillins Adverse Reaction (Verified 06/03/18 19:33) Rash sulfisoxazole acetyl [From Pediazole] Adverse Reaction (Verified 06/03/18 19:33) Rash tramadol Adverse Reaction (Verified 06/03/18 19:33) NOSEBLEEDS, HIVES Home Medications: Ambulatory Orders Norgestimate-Ethinyl Estradiol [Tri-Sprintec Tablet] 1 tab PO DAILY 11/01/17 Disposition Discussed With: Patient
--- NOTE | 2018-06-25 23:04 | DI ---
EXAM: PA and lateral views of the chest. HISTORY: Chest pain. FINDINGS: The bones are unremarkable. The cardiac silhouette and pulmonary vasculature are within no rmal limits. The costophrenic angles are clear. No infiltrate or consolidation. Impression: No acute cardiopulmonary disease.
--- NOTE | 2018-06-26 00:18 | CT ---
EXAM: CTA chest HISTORY: Cough chest pain COMPARISON: None. FINDINGS: Contiguous axial images obtained through the thorax following uneventful administration in travenous contrast utilizing 3-mm collimation. Sagittal and coronal reconstructions were imaged and reviewed.. Source images were utilized to create rotating 3-D MIP images The thoracic inlet is unre markable. There are subcentimeter right hilar and subcarinal lymph nodes. The heart is normal in si ze without pericardial effusion.. There is no evidence of pulmonary embolus. Scattered ground-glass opacities noted bilaterally which may be related to atelectasis versus interstitial infiltrate. The re is no evidence of a pleural effusion. There has been prior cholecystectomy.. Bone windows reveal s no evidence of lytic or blastic lesions. IMPRESSION: No evidence of pulmonary embolus. Scattered ground-glass opacity without consolidation or effusion Nonspecific right hilar and subcarinal lymph nodes.
[2018-06-26] MEDS: MORPHINE 2 MG/ML SYRINGE IVP STA (00:41)
[2018-06-26] MEDS: MORPHINE 2 MG/ML SYRINGE ONE (01:12)
== END 2018-06-26 01:50 | disposition home or self-care (01) ==
LOC: ED 20:32
DX: R07.9 Chest pain, unspecified (principal)
CPT/HCPCS: 36415; 80053; 84703; 85025; 85379; 93005; 93010; 96374; 96375; 99284

== ENCOUNTER 2018-09-22 20:05 | Emergency (ER) | payer OTHER ==
[2018-09-22 20:10] VITALS: BP 91/56; TEMP 98.8; BMI 38.0
--- NOTE | 2018-09-22 20:39 | DI ---
EXAM: Three views of the left fourth digit. HISTORY: Trauma. FINDINGS: The bones are intact with no evidence of fracture. The joint spaces are maintained. There is soft tissue swelling in the fourth digit. Impression: No evidence of fracture. Soft tissue swelling.
--- NOTE | 2018-09-22 20:46 | ED.PDOC ---
General ED Provider: Dr. FRANCO ADORNO-ER Chief Complaint: Finger Pain/Injury Stated Complaint: i hit my finger Time Seen by Physician: 20:44 Mode of Arrival: Walk-In Information Source: Patient Exam Limitations: No limitations Nursing and Triage Documentation Reviewed and Agree: Yes Does patient meet sepsis criteria?: No System Inflammatory Response Syndrome: Not Applicable Sepsis Protocol: For patient's 13 years and over: Temp is 96.8 and below OR 101 and greater Pulse >90 BPM Resp >20/minute Acutely Altered Mental Status Are patient's symptoms suggestive of a new infection, such as: -Pneumonia -Skin, Soft Tissue -Endocarditis -UTI -Bone, Joint Infection -Implantable Device -Acute Abdominal Infection -Wound Infection -Meningitis -Blood Stream Catheter Infection -Unknown Musculoskeletal Complaint Exam - Hand/Wrist Complaint/Exam Location of Pain: Reports: Left, Digit #4 Mechanism of Injury: Reports: Trauma Onset/Duration: one hour Symptoms Are: Still present Onset of Pain: Reports: Immediate Initial Severity: Mild Current Severity: Mild Location: Reports: Discrete Character: Reports: Dull, Aching Aggravating: Reports: Movement Associated Signs and Symptoms: Reports: Swelling Compartment Syndrome Risk Factors: Present: Pain Differential Diagnoses: Closed Fracture, Sprain, Strain Review of Systems - Review Of Systems Constitutional: Reports: No symptoms Eyes: Reports: No symptoms Ears, Nose, Mouth, Throat: Reports: No symptoms Respiratory: Reports: No symptoms Cardiac: Reports: No symptoms GI: Reports: No symptoms : Reports: No symptoms Musculoskeletal: Reports: No symptoms Skin: Reports: No symptoms Neurological: Reports: No symptoms Endocrine: Reports: No symptoms Hematologic/Lymphatic: Reports: No symptoms All Other Systems: Reviewed and Negative Past Medical History - Past Medical History Previously Healthy: Yes Endocrine: Reports: None Cardiovascular: Reports: None Respiratory: Reports: None Hematological: Reports: None Gastrointestinal: Reports: Other (colitis ) Genitourinary: Reports: None Neuro/Psych: Reports: Migraine, Anxiety, Depression Musculoskeletal: Reports: None Cancer: Reports: None Last Menstrual Period: 2-3 months ago Other Pertinent Past Medical History: polycystic ovarian syndrome in both ovaries, elevated testosterone, COLITIS - Surgical History General Surgical History: Reports: Cholecystectomy, Tonsillectomy, Other ( wisdom teeth ) - Family History Family History: Reports: Hypertension, Diabetes - Social History Smoking Status: Never smoker Hx Substance Use: No Alcohol Screening: Occasionally Physical Exam - Physical Exam Appearance: Well-appearing, No pain distress, Well-nourished Eyes: COURTNEY, EOMI, Conjunctiva clear ENT: Ears normal, Nose normal, Oropharynx normal Respiratory: Airway patent, Breath sounds clear, Breath sounds equal, Respirations nonlabored Cardiovascular: RRR, Pulses normal, No rub, No murmur GI/: Soft, Nontender, No masses, Bowel sounds normal, No Organomegaly Musculoskeletal: Normal strength, No edema, No calf tenderness, Limited ROM Skin: Warm, Dry, Normal color Neurological: Sensation intact, Motor intact, Reflexes intact, Cranial nerves intact, Alert, Oriented Psychiatric: Affect appropriate, Mood appropriate Interpretation - Radiology Interpretation Radiology Interpretation By: Radiologist Radiology Results: Negative Critical Care Note - Critical Care Note Total Time (mins): 0 Course - Course Orders, Labs, Meds: Orders Category Date Time Status Splint [ED SPLINT APPLICATION] .ONCE EMERGENCY 09/22/18 20:44 Active FINGER(S), LEFT MIN 2V Stat RADS 09/22/18 20:13 Completed Vital Signs: Temp Pulse Resp BP Pulse Ox 09/22/18 20:05 98.8 F 90 20 91/56 L 100 Departure - Departure Time of Disposition: 20:46 Disposition: HOME SELF-CARE Discharge Problem: Injury of finger Instructions: Finger Sprain (ED) Condition: Good Pt referred to PMD for follow-up: Yes IPMP verified?: No Additional Instructions: stay in splint---f/u with pcp if not better in a few days Allergies/Adverse Reactions: Allergies amoxicillin Adverse Reaction (Verified 09/22/18 20:09) Rash cefixime [From Suprax] Adverse Reaction (Verified 09/22/18 20:09) Rash erythromycin ethylsuccinate [From Pediazole] Adverse Reaction (Verified 20:09) Rash ketorolac [From Toradol] Adverse Reaction (Verified 09/22/18 20:09) CANT REMEMBER naproxen [From Naprosyn] Adverse Reaction (Verified 09/22/18 20:09) BLISTERS Penicillins Adverse Reaction (Verified 09/22/18 20:09) Rash sulfisoxazole acetyl [From Pediazole] Adverse Reaction (Verified 09/22/18 20:09) Rash tramadol Adverse Reaction (Verified 09/22/18 20:09) NOSEBLEEDS, HIVES Home Medications: Ambulatory Orders 1 [No Reported Medications] 09/22/18 Disposition Discussed With: Patient
== END 2018-09-22 20:51 | disposition home or self-care (01) ==
LOC: ED 20:05
DX: S69.92XA Unspecified injury of left wrist, hand and finger(s), initial encounter (principal); W22.8XXA Striking against or struck by other objects, initial encounter
CPT/HCPCS: 99283

== ENCOUNTER 2019-05-26 05:38 | Observation (INO) ==
[2019-05-26] MEDS ORDERED: ZOFRAN 4 MG/2 ML IM STA (06:29)
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
[2019-05-26] MEDS ORDERED: SODIUM CHLORIDE 1,000 ML IV STA ×2 (06:40→10:01)
[2019-05-26 06:57] LABS: HEMATOCRIT 46.9 % (37.0-47.0)
[2019-05-26] MEDS ORDERED: PHENERGAN 25 MG/ML VIAL 25 MG in SODIUM CHLORIDE 50 ML IV STA (08:20)
[2019-05-26] MEDS ORDERED: PHENERGAN 25 MG/ML VIAL ONE (08:39)
--- NOTE | 2019-05-26 09:55 | CT ---
EXAM: CT ABDOMEN AND PELVIS HISTORY: Pain with nausea and vomiting TECHNIQUE: CT abdomen and pelvis without intravenous contrast. Images were reconstructed using 5 mm section thickness. Reformations were prepared. COMPARISON: 07/27/2018 FINDINGS: Diagnostic limitations exist without including intravenous contrast enhanced images. The liver and s pleen appear normal. Gallbladder has been removed. Pancreas, adrenal glands, kidneys, ureters and a bdominal aorta appear normal. Stomach is unremarkable. Normal appendix. The colon has a few scattered diverticula throughout with out evidence of inflammation. Bowel gas pattern is within normal limits. Uterus and urinary bladder appear normal. There is no ascites or inflammatory infiltration of the abdominal fat. No abdominal hernia is present. The bones are within normal limits. Lung bases are clear. No pneum operitoneum. IMPRESSION: There are a few scattered colonic diverticula throughout the colon without evidence of in flammation. Otherwise the examination was unremarkable.
[2019-05-26] MEDS ORDERED: PEPCID IVP STA (10:00)
[2019-05-26] MEDS ORDERED: ZOFRAN 4 MG/2 ML IVP PRN ×2 (10:38→11:46)
[2019-05-26 11:31] VITALS: BMI 34.1
[2019-05-26] MEDS ORDERED: TYLENOL RC PRN (12:15)
[2019-05-26] MEDS ORDERED: TYLENOL PO PRN (12:15)
[2019-05-26] MEDS: SODIUM CHLORIDE 1,000 ML IV SCH (12:52)
[2019-05-26] MEDS ORDERED: FLAGYL PO SCH (13:00)
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
[2019-05-26] MEDS ORDERED: FLUZONE QUAD 2019-2020 SYRINGE IM ONE (15:28)
[2019-05-26] MEDS ORDERED: NON-FORMULARY MEDICATION (Etonogestrel [Nexplanon] 68 MG) SUBDERMAL SCH (16:30)
[2019-05-26 17:42] LABS: HEMATOCRIT 40.5 % (37.0-47.0)
[2019-05-26] MEDS: PRILOSEC PO SCH (17:58)
[2019-05-26] MEDS: FLAGYL 500 MG/100 ML 500 MG/100 ML BAG IV SCH (17:58)
[2019-05-26] MEDS: NORETHINDRONE E ESTRADIOL IRON PO SCH (21:35)
[2019-05-27] MEDS: FLAGYL 500 MG/100 ML 500 MG/100 ML BAG IV SCH ×3 (00:55→12:22)
[2019-05-27] MEDS: SODIUM CHLORIDE 1,000 ML IV SCH (00:55)
[2019-05-27] MEDS: PRILOSEC PO SCH ×2 (05:32→17:44)
[2019-05-27 05:34] LABS: HEMATOCRIT 40.5 % (37.0-47.0)
[2019-05-27] MEDS: NORETHINDRONE E ESTRADIOL IRON PO SCH (08:32)
[2019-05-27] MEDS ORDERED: NON-FORMULARY MEDICATION (Etonogestrel [Nexplanon] 68 MG) SUBDERMAL SCH (12:30)
[2019-05-27 14:14] VITALS: BP 139/81; TEMP 97.8
--- NOTE | 2019-05-28 21:26 | PCM.DC ---
Final Diagnosis:Acute Infective Gastroenteritis (1) Acute infective gastroenteritis: Status: Acute Code(s): A09 - Infectious gastroenteritis and colitis, unspecified SNOMED Code(s): 08615272 (2) Acute dehydration: Status: Acute Code(s): E86.0 - Dehydration SNOMED Code(s): 25502563 Reason for Hospitalization: Gastroenteritis w/ dehydration. Prognosis at Discharge: Prognosis was good with good hygiene and transmission p revention was she is home. has not had the infection and the children are doing well for the last 2 days. Condition at Discharge: Stable and improving. No pain, N/V, or diarrhea. Appetite improving was slow advancing of diet as directed. EXAM: HEENT: Ears: Canals clear w/o inflammation; TM's intact w/o fluid, injection. Eyes: PERRLA; no drainage or redness. Nose: Mucosa pink, moist w/o lesions or bleeding. Good air flow. Throat: Mild cobblestoning. No PND or lesions; swallows w/o difficulty. Mouth:Oral mucosa pink and moist w/o lesions. Neck: Supple; non-tender to palpation. No lymphadenopathy; FROM w/o pain. Neurological: A/O X4. Cooperative & pleasant. Gait steady w/ nurse asst. Good balance. No tremors. Lungs: CTA; no rales, rhonchi, or wheezes. NO cough. Respirations easy and regular w/o retractions. Heart: RRR; no murmurs or gallops. PPP 2+/4+ =. Abdomen: Obese; soft; mild tenderness mid-epigastric region w/o rebound or guarding; No masses. AINSLEY/SO present X4.and normal. Medications at Discharge: Ambulatory Orders Medication Instructions Recorded etonogestrel [Nexplanon] 68 mg SUBDERMAL DIRECTED 12/01/18 norethindrone-e.estradiol-iron 1 tab PO DAILY 05/26/19 [Tiffanie Fe [birth year])] ondansetron 4 mg PO Q8H PRN #20 tab NS 05/27/19 Lab/Diagnostics: Laboratory Results WBC 6.93 K/ul (4.6-10.2) 05/27/19 05:30 RBC 4.83 10^6/ul (4.20-5.40) 05/27/19 05:30 Hgb 13.6 g/dl (12.0-16.0) 05/27/19 05:30 Hct 40.5 % (37.0-47.0) 05/27/19 05:30 MCV 83.9 fl (81.0-99.0) 05/27/19 05:30 MCH 28.2 pg (27.0-31.0) 05/27/19 05:30 MCHC 33.6 (31.8-35.4) 05/27/19 05:30 RDW Coeff of [place] 12.8 % (11.6-14.8) 05/27/19 05:30 Plt Count 247 10^3/uL (140-440) 05/27/19 05:30 Immature Gran % (Auto) 0.1 % (0.0-5.0) 05/27/19 05:30 Neut % (Auto) 74.7 % (42.2-75.2) 05/27/19 05:30 Lymph % (Auto) 18.2 (10.0-50.0) 05/27/19 05:30 [place] % (Auto) 5.3 (0-10) 05/27/19 05:30 Eos % (Auto) 1.6 % (0.0-7.0) 05/27/19 05:30 Baso % (Auto) 0.1 % (0.0-3.0) 05/27/19 05:30 Immature Gran # (Auto) 0.0 (0.0-1.0) 05/27/19 05:30 Neut # (Auto) 5.2 K/ul (2.0-6.9) 05/27/19 05:30 Lymph # (Auto) 1.3 K/uL (0.60-3.4) 05/27/19 05:30 [place] # (Auto) 0.4 K/uL (0.4-2.0) 05/27/19 05:30 Eos # (Auto) 0.1 K/ul (0.0-0.7) 05/27/19 05:30 Baso # (Auto) 0.0 K/uL (0-0.2) 05/27/19 05:30 Sodium 135.3 mmol/L (134.5-145) 05/27/19 05:30 Potassium 3.55 mmol/L (3.5-5.1) 05/27/19 05:30 Chloride 104.1 mmol/L (98-107) 05/27/19 05:30 Carbon Dioxide 24.6 mmol/L (22-30.0) 05/27/19 05:30 Anion Gap 10.15 05/27/19 05:30 BUN 6.5 mg/dL (7-17) L 05/27/19 05:30 Creatinine 0.72 mg/dL (0.60-1.30) 05/27/19 05:30 Estimated GFR (MDRD) 97.00 mL/min 05/27/19 05:30 BUN/Creatinine Ratio 9.02 05/27/19 05:30 Glucose 102.5 mg/dL (74-106) 05/27/19 05:30 Calcium 8.14 mg/dL (8.4-10.2) L 05/27/19 05:30 Magnesium 2.26 mg/dL (1.6-2.3) 05/26/19 06:53 Total Bilirubin 0.69 mg/dL (0.2-1.3) 05/26/19 06:53 AST 28.1 U/L (14-36) 05/26/19 06:53 ALT 26.6 U/L (0-35) 05/26/19 06:53 Alkaline Phosphatase 87.7 U/L (38-126) 05/26/19 06:53 Total Protein 8.45 g/dL (6.3-8.2) H 05/26/19 06:53 Albumin 4.89 g/dL (3.5-5.0) 05/26/19 06:53 Globulin 3.56 05/26/19 06:53 Albumin/Globulin Ratio 1.37 05/26/19 06:53 Serum , Qual Negative (NEGATIVE) 05/26/19 06:35 Urine Color Yellow (YELLOW) 05/26/19 08:52 Urine Clarity Clear (CLEAR) 05/26/19 08:52 Urine pH 5.0 (5-9) 05/26/19 08:52 Ur Specific [place] >=1.030 (1.005-1.030) 05/26/19 08:52 Urine Protein Negative (NEGATIVE) 05/26/19 08:52 Urine Glucose (UA) Negative (NEGATIVE) 05/26/19 08:52 Urine Ketones 1+ (NEGATIVE) 05/26/19 08:52 Urine Blood Negative (NEGATIVE) 05/26/19 08:52 Urine Nitrite Negative (NEGATIVE) 05/26/19 08:52 Urine Bilirubin Negative (NEGATIVE) 05/26/19 08:52 Urine Urobilinogen 0.2 (0.2) 05/26/19 08:52 Ur Leukocyte Esterase Negative (NEGATIVE) 05/26/19 08:52 Education Provided to Patient and Family: Gastroenteritis handout given per OTRI Zuniga. 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 Report fever, bloody diarrhea, emesis, and other symptoms found/discussed in her handout to Dr. Ramos nurse immediately for further direction or report to ER if unable to contact MD. Discussed importance of good handwashing, cleaning her house especially door knobs, faucet handles, toilets, and areas of sickness w/ lysol wipes---see handout. Patient verbalized understanding of plan of care and MD fRomu and agrees w/ plan of care. Follow-ups: Follow-up appointment w/ Dr. Lam Ramos 05/29/2019 1PM. Patient instructed to be there 15-20minutes prior to appt. Discharge Disposition: Home Hospital Course: Grace Valentine is a 29 yo female admitted 05/26/2018 to [facility] for observation after sudden onset of N/V and diarrhea approximately 2AM 05/26/2018 after treating her 2 and 3 yo children for the prior 3 days with the same symptoms. She had 2 episodes of bilious emesis and 3-4 moderate amounts of liquid medium brown diarrhea stools prior to admission. After admission and use of Zofran IV prn, Flagyl 500mg IVPB Q 8 hrs, Pepcid IV, and IVF replacement for dehydration, her nausea subsided with no more emesis during hospitalization. Diarrhea also ebbed w/ only 2-3 more episodes and stool sent for C Diff & Culture have revealed no significant findings. She was tired and wanted to rest after caring for her ill children. Plan: Discharge home w/ resumption of home medications. Zofran given for prn use if nausea recurs. Observe stools and emesis for blood as directed. Practice good contact precautions as directed--see patient handout if or other family members gets ill. Focus on prevention of gastroenteritis w/ rest, diet as directed, and slowly increasing her daily activity. F-U w/ MD to assure no complications developing. There was a glitch with the [employer] system with patient leaving w/o her Rx. Nurse did call her for the prescribed Omeprazole 40mg PO daily X 7 days and Ondansetran DT 4mg to be used Q 6 hrs prn N/V. Nurse Zuniga called patient and was phoning the RXs to patient pharmacy in [facility]. Discharge Deposition Time 50 minutes.
== END 2019-05-27 17:27 | disposition home or self-care (01) ==
LOC: ED 05:38 → MEDSURG B 05:38
PROVIDERS: ADMIT Nurse Practitioner Family; ATTEND Nurse Practitioner Family
DX: R50.9 Fever, unspecified; R53.1 Weakness